=== PATIENT | female | born 1930 | race Caucasian/White ===

== ENCOUNTER 2019-04-30 18:08 | Inpatient (IN) | payer OTHER ==
[2019-04-30] MEDS ORDERED: ASPIRIN COATED 81 MG TABLET.EC ONE (18:31)
[2019-04-30 18:36] VITALS: BMI 36.9
--- NOTE | 2019-04-30 19:13 | PDOC ---
History of Present Illness - General Chief Complaint: Chest Pain Stated Complaint: CHEST PAIN Time Seen by Provider: 04/30/19 19:13 Past History - Past Medical History Allergies/Adverse Reactions: Allergies Allergy/AdvReac Type Severity Reaction Status Date / Time No Known Drug Allergies Allergy Verified 04/30/19 18:36 Home Medications: Ambulatory Orders Acetaminophen [Tylenol .Extra-Strength -] 500 mg PO DAILY 06/12/16 Ammonium Lactate Lotion [Lac-Hydrin 12] 1 applic TP ASDIR 06/12/16 Ascorbic Acid [Vitamin C] 500 mg PO DAILY 06/12/16 Calcium 250Mg/Vit-D 125 Units [Oscal 250 mg+D -] 1 combo PO BID 06/12/16 Clopidogrel Bisulfate [Plavix -] 75 mg PO DAILY 06/12/16 Cyanocobalamin [Vitamin B12 -] 1,000 mcg PO DAILY 06/12/16 Docusate Sodium [Colace -] 200 mg PO DAILY 06/12/16 Duloxetine HCl [Cymbalta] 30 mg PO DAILY 06/12/16 Ergocalciferol (Vitamin D2) [Drisdol] 50,000 units PO DAILY 06/12/16 Esomeprazole Magnesium [Nexium 24Hr] 20 mg PO DAILY 06/12/16 Febuxostat [Uloric -] 40 mg PO DAILY 06/12/16 Furosemide [Lasix -] 20 mg PO DAILY 06/12/16 Linaclotide [Linzess] 145 mcg PO DAILY 06/12/16 Lisinopril [Prinivil] 5 mg PO DAILY 06/12/16 Multivitamins [Multivit ([facility] Formulary)] 1 tab PO DAILY 06/12/16 Nebivolol [Bystolic -] 5 mg PO DAILY 06/12/16 Olopatadine HCl [Pazeo] 2.5 ml OP DAILY 06/12/16 [place]-3 Acid Ethyl Esters [Lovaza -] 2,000 mg PO BID 06/12/16 Ranolazine [Ranexa] 500 mg PO DAILY 06/12/16 Rosuvastatin Calcium [Crestor] 20 mg PO DAILY 06/12/16 traMADol HCL [Ultram -] 50 mg PO Q4H 06/12/16 Anemia: No Asthma: No Cancer: Yes (R BREAST S/P RADIATION) Cardiac Disorders: Yes (CABG) CVA: (TIA) COPD: Yes CHF: No Dementia: No Diabetes: Yes GI Disorders: No Disorders: No HTN: Yes Hypercholesterolemia: Yes Liver Disease: No Seizures: No Thyroid Disease: No - Surgical History Abdominal Surgery: No Appendectomy: No Cardiac Surgery: Yes (CABG) Cholecystectomy: Yes Lung Surgery: No Neurologic Surgery: No Orthopedic Surgery: No - Immunization History Immunization Up to Date: No - Suicide/Smoking/Psychosocial Hx Smoking Status: No Smoking History: Never smoked Have you smoked in the past 12 months: No Number of Cigarettes Smoked Daily: 0 Information on smoking cessation initiated: No Hx Alcohol Use: No Drug/Substance Use Hx: No Substance Use Type: None Hx Substance Use Treatment: No *Physical Exam - Vital Signs Last Vital Signs Temp Pulse Resp BP Pulse Ox 99 F 67 18 149/79 99 04/30/19 18:29 04/30/19 18:29 04/30/19 18:29 04/30/19 18:29 04/30/19 18:29
--- NOTE | 2019-04-30 19:34 | PDOC ---
History of Present Illness - General Chief Complaint: Chest Pain Stated Complaint: CHEST PAIN Time Seen by Provider: 04/30/19 19:13 - History of Present Illness Initial Comments: Darion Nicholas is an 88yo with a PMH of CAD, CABG, HTN, hyperlipidemia, type 2 DM, breast cancer, CVA, OA, melanoma who presents to the ED with acute onset of right-sided chest pain this evening. Her daughter is at bedside to translate. Ms Nicholas reports that she had the chest pain staring about an hour ago. It was intense, sharp, and radiated from the anterior right chest to right scapula. The pain did not feel like her previous chest pain. She did take a SL nitro with improvement in the pain temporarily, but when it did not resolve her daughter called an ambulance. She was given 2 additional SL nitro by EMS. The pt denies any difficulty breathing, nausea/vomiting, sweating, lightheadedness or other symptoms along with the pain. She states that it did worsen with movement, but she is unable to distinguish her chronic shoulder pain (from OA) from the current pain. Her daughter reports that she has not had any cough, congestion, fever/chills, recent travel, sick contacts, change in medications or other recent symptoms. Past History - Past Medical History Allergies/Adverse Reactions: Allergies Allergy/AdvReac Type Severity Reaction Status Date / Time No Known Drug Allergies Allergy Verified 04/30/19 18:36 Home Medications: Ambulatory Orders Acetaminophen [Tylenol .Extra-Strength -] 500 mg PO DAILY 06/12/16 Ammonium Lactate Lotion [Lac-Hydrin 12] 1 applic TP ASDIR 06/12/16 Ascorbic Acid [Vitamin C] 500 mg PO DAILY 06/12/16 Calcium 250Mg/Vit-D 125 Units [Oscal 250 mg+D -] 1 combo PO BID 06/12/16 Clopidogrel Bisulfate [Plavix -] 75 mg PO DAILY 06/12/16 Cyanocobalamin [Vitamin B12 -] 1,000 mcg PO DAILY 06/12/16 Docusate Sodium [Colace -] 200 mg PO DAILY 06/12/16 Duloxetine HCl [Cymbalta] 30 mg PO DAILY 06/12/16 Ergocalciferol (Vitamin D2) [Drisdol] 50,000 units PO DAILY 06/12/16 Esomeprazole Magnesium [Nexium 24Hr] 20 mg PO DAILY 06/12/16 Febuxostat [Uloric -] 40 mg PO DAILY 06/12/16 Furosemide [Lasix -] 20 mg PO DAILY 06/12/16 Linaclotide [Linzess] 145 mcg PO DAILY 06/12/16 Lisinopril [Prinivil] 5 mg PO DAILY 06/12/16 Multivitamins [Multivit ([facility] Formulary)] 1 tab PO DAILY 06/12/16 Nebivolol [Bystolic -] 5 mg PO DAILY 06/12/16 Olopatadine HCl [Pazeo] 2.5 ml OP DAILY 06/12/16 [place]-3 Acid Ethyl Esters [Lovaza -] 2,000 mg PO BID 06/12/16 Ranolazine [Ranexa] 500 mg PO DAILY 06/12/16 Rosuvastatin Calcium [Crestor] 20 mg PO DAILY 06/12/16 traMADol HCL [Ultram -] 50 mg PO Q4H 06/12/16 Anemia: No Asthma: No Cancer: Yes (R BREAST S/P RADIATION) Cardiac Disorders: Yes (CABG) CVA: (TIA) COPD: Yes CHF: No Dementia: No Diabetes: Yes GI Disorders: No Disorders: No HTN: Yes Hypercholesterolemia: Yes Liver Disease: No Seizures: No Thyroid Disease: No - Surgical History Abdominal Surgery: No Appendectomy: No Cardiac Surgery: Yes (CABG) Cholecystectomy: Yes Lung Surgery: No Neurologic Surgery: No Orthopedic Surgery: No - Immunization History Immunization Up to Date: No - Suicide/Smoking/Psychosocial Hx Smoking Status: No Smoking History: Never smoked Have you smoked in the past 12 months: No Number of Cigarettes Smoked Daily: 0 Information on smoking cessation initiated: No Hx Alcohol Use: No Drug/Substance Use Hx: No Substance Use Type: None Hx Substance Use Treatment: No Review of Systems - Review of Systems Comments:: General: No fevers, no chills, no weight or appetite change, no malaise HEENT: No changes in vision, no changes in hearing, no congestion, no sore throat CV: +Chest pain, no palpitations, no LE edema Pulm: No SOB, no cough, no wheezing GI: No nausea or vomiting, no change in bowel habits, no melena : No frequency, no urgency, no dysuria Musc: No back pain, no joint swelling, no recent injury. +OA Skin: No rash, no lesions, no erythema Endo: No excessive thirst, no heat/cold intolerance Heme: No unusual bruising or bleeding, no swollen glands Neuro: No syncope, no numbness/tingling, no focal weakness Vasc: No claudication Psych: No recent change in mood, no SI or HI *Physical Exam - Vital Signs Last Vital Signs Temp Pulse Resp BP Pulse Ox 99 F 67 18 149/79 99 04/30/19 18:29 04/30/19 18:29 04/30/19 18:29 04/30/19 18:29 04/30/19 18:29 - Physical Exam Comments: General: Comfortable, no acute distress HEENT: PERRL, EOMI, MMM, voice normal, normal neck ROM Cards: RRR, no murmur appreciated. TTP over right anterior chest Pulm: Comfortable on room air, clear to auscultation bilaterally Abd: Soft, nontender, nondistended Ext: Atraumatic. No LE edema. ROM intact but pain elicited w/ arm movements. TTP over b/l shoulders and scapula Vasc: Extremities WWP. Skin: Normal color, no rashes or lesions Neuro: A&Ox3, CN grossly intact, normal speech, motor/sensory grossly intact and symmetric Psych: Mood appropriate to situation ED Treatment Course - LABORATORY CBC & Chemistry Diagram: 04/30/19 19:38 04/30/19 22:00 Medical Decision Making - Medical Decision Making 04/30/19 19:34 Darion Nicholas is an 88yo with a PMH of CAD, CABG, HTN, hyperlipidemia, type 2 DM, breast cancer, CVA, OA, melanoma who presents to the ED with acute onset of right-sided chest pain this evening. She denies associated SOB, recent cough , nausea/vomiting or lightheadedness but reports worsening of pain w/ movement. Her daughter is at bedside to translate. - EKG completed in triage. Sinus rhythm, 1st degree block (TX 212), LBBB, t- wave inversions in I, II, aVL. Unchanged from 2016. - Pain sounds more musculoskeletal than cardiac, possible due to severe arthritis pain in left shoulder, but pt has significant cardiac comorbidities - No cough, fever, congestion suggesting pneumonia, but CXR to r/o - CBC, CMP, trop, mag, BNP - Acetaminophen for pain 04/30/19 20:40 - Difficulty placing IV. US guided line to be attempted by Dr Dowling 04/30/19 23:07 - Labs reviewed, no concerning abnormalities - Given comborbidities, pt is high risk for cardiac cause of pain. Microblog sent for admission 04/30/19 23:39 - Sign out given to V BELT CURER Jasmyn Weber. Will be admitted to telemetry on Dr Iglesias's service. Discussed with Dr Sheehan. Keyla James PGY2 *DC/Admit/Observation/Transfer Diagnosis at time of Disposition: Chest pain Qualifiers: Chest pain type: unspecified Qualified Code(s): R07.9 - Chest pain, unspecified - Discharge Dispostion Decision to Admit order: Yes - Referrals - Patient Instructions - Post Discharge Activity
[2019-04-30] MEDS ORDERED: ACETAMINOPHEN 1000 MG/100 ML VIAL (NON FORMULARY) IVPB ONE (19:35)
--- NOTE | 2019-04-30 19:56 | PDOC ---
Attending Attestation - Resident Resident Name: AnthonybrianKeyla - ED Attending Attestation I have performed the following: I have examined & evaluated the patient, The case was reviewed & discussed with the resident, I agree w/resident's findings & plan, Exceptions are as noted - HPI HPI: 04/30/19 23:04 88 yo F h/o CAD CABG htn here with chest pain. radiates across chest to back and right arm. has had similar in the past. also h/o arthritis. no leg swelling. no sob. no n/v no other complaints. started today. pcp dr mayuri hand - Physicial Exam PE: 04/30/19 23:07 awake alert lungs clear bilt heart rrr no mrg abd soft nt ext wwp no edema. no calf tenderness. pulses symmetric. - Medical Decision Making 04/30/19 23:08 88 yo F with h/o prior mastectomy dm cad cabg, here with c/o sob chest pain . plan r/o acs lab ekg took asa by EMS and nitro. cxr. labs unremarkable. ekg no acute changes. Heart Score/ECG Review #1 General ECG Interpretation: Sinus Rhythm, Normal Rate (67), Normal Intervals, No acute ischemic changes Compared to previous ECG there are: No significant change (TWi I, AVL, V4 - V6, left axis, LBBB no change from. 06/12/16)
[2019-04-30] MEDS ORDERED: ACETAMINOPHEN INJECTION 100 ML IVPB ONE (21:37)
[2019-04-30 22:13] LABS: EOS % 1.2 % (0-4.5); HEMOGLOBIN 13.7 GM/dL (10.7-15.3); LYMPH % 41.7 % (8-40); MCH 27.9 pg (25.7-33.7); MEAN CELL VOLUME 87.2 fl (80-96); MEAN PLT VOLUME 9.4 fl (7.5-11.1); MONO % 5.2 % (3.8-10.2); NEUT % 50.9 % (42.8-82.8); PLATELET COUNT 230 K/MM3 (134-434); RBC 4.93 M/mm3 (3.60-5.2); RDW 14.5 % (11.6-15.6); WHITE BLOOD COUNT 10.4 K/mm3 (4.0-10.0)
[2019-04-30 22:56] LABS: ALBUMIN 3.4 g/dl (3.4-5.0); BILIRUBIN,TOTAL 0.2 mg/dL (0.2-1); BLOOD UREA NITROGEN 38.5 mg/dL (7-18); CALCIUM 9.1 mg/dL (8.5-10.1); CREATININE 1.4 mg/dL (0.55-1.3); MAGNESIUM 2.4 mg/dL (1.8-2.4); N-TERMINAL BNP 581.4 pg/ml (5-450); POTASSIUM 4.5 mmol/L (3.5-5.1); TOT PROT 6.6 g/dl (6.4-8.2)
--- NOTE | 2019-04-30 23:49 | HP ---
Admitting History and Physical - Primary Care Physician PCP: Shayy Iglesias I - Admission Chief Complaint: Chest Pain History of Present Illness: This is a 88 y/o woman with a PMHx of CAD s/p CABG, HTN, HLD, DM, CVA, OA, Breast Ca, Melanoma. Who presents to the ED for right sided chest pain with radiation to L- shoulder. The daughter translated at bedside. 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: CVA Cardiovascular: Yes: CAD, HTN, Hyperlipdemia Heme/Onc: Yes: Cancer (Breast) Endocrine: Yes: Diabetes Mellitus - Past Surgical History Past Surgical History: Yes: CABG, Cholecystectomy, Mastectomy (Right) - Smoking History Smoking history: Never smoked Have you smoked in the past 12 months: No Aproximately how many cigarettes per day: 0 - Alcohol/Substance Use Hx Alcohol Use: No History of Substance Use: reports: None - Social History Usual Living Arrangement: Yes: With Child ADL: Family Assistance History of Recent Travel: No Home Medications - Allergies Allergies/Adverse Reactions: Allergies Allergy/AdvReac Type Severity Reaction Status Date / Time No Known Drug Allergies Allergy Verified 04/30/19 18:36 - Home Medications Home Medications: Ambulatory Orders Acetaminophen [Tylenol .Extra-Strength -] 500 mg PO DAILY 06/12/16 Ammonium Lactate Lotion [Lac-Hydrin 12] 1 applic TP ASDIR 06/12/16 Ascorbic Acid [Vitamin C] 500 mg PO DAILY 06/12/16 Calcium 250Mg/Vit-D 125 Units [Oscal 250 mg+D -] 1 combo PO BID 06/12/16 Clopidogrel Bisulfate [Plavix -] 75 mg PO DAILY 06/12/16 Cyanocobalamin [Vitamin B12 -] 1,000 mcg PO DAILY 06/12/16 Docusate Sodium [Colace -] 200 mg PO DAILY 06/12/16 Duloxetine HCl [Cymbalta] 30 mg PO DAILY 06/12/16 Ergocalciferol (Vitamin D2) [Drisdol] 50,000 units PO DAILY 06/12/16 Esomeprazole Magnesium [Nexium 24Hr] 20 mg PO DAILY 06/12/16 Febuxostat [Uloric -] 40 mg PO DAILY 06/12/16 Furosemide [Lasix -] 20 mg PO DAILY 06/12/16 Linaclotide [Linzess] 145 mcg PO DAILY 06/12/16 Lisinopril [Prinivil] 5 mg PO DAILY 06/12/16 Multivitamins [Multivit ([facility] Formulary)] 1 tab PO DAILY 06/12/16 Nebivolol [Bystolic -] 5 mg PO DAILY 06/12/16 Olopatadine HCl [Pazeo] 2.5 ml OP DAILY 06/12/16 [place]-3 Acid Ethyl Esters [Lovaza -] 2,000 mg PO BID 06/12/16 Ranolazine [Ranexa] 500 mg PO DAILY 06/12/16 Rosuvastatin Calcium [Crestor] 20 mg PO DAILY 06/12/16 traMADol HCL [Ultram -] 50 mg PO Q4H 06/12/16 Family Disease History - Family Disease History Family History: Unable to Obtain Family Medical History Family History: Unable to Obtain Review of Systems - Review of Systems Constitutional: reports: No Symptoms Eyes: reports: No Symptoms HENT: reports: No Symptoms Neck: reports: No Symptoms Cardiovascular: reports: Chest Pain Respiratory: reports: No Symptoms Gastrointestinal: reports: No Symptoms Genitourinary: reports: No Symptoms Breasts: reports: No Symptoms Reported Musculoskeletal: reports: Joint Pain Integumentary: reports: No Symptoms Neurological: reports: No Symptoms Endocrine: reports: No Symptoms Hematology/Lymphatic: reports: No Symptoms Psychiatric: reports: No Symptoms Pain Intensity: 4 Physical Examination Vital Signs: Vital Signs Temperature 99 F 04/30/19 18:29 Pulse Rate 67 04/30/19 18:29 Respiratory Rate 18 04/30/19 18:29 Blood Pressure 149/79 04/30/19 18:29 O2 Sat by Pulse Oximetry (%) 99 04/30/19 18:29 Constitutional: Yes: Well Nourished, No Distress, Calm Eyes: Yes: WNL, Conjunctiva Clear, EOM Intact, PERRL HENT: Yes: WNL, Atraumatic, Normocephalic Neck: Yes: WNL, Supple, Trachea Midline Cardiovascular: Yes: WNL, Regular Rate and Rhythm, S1, S2, Other (CP - reproducible on palpation) Respiratory: Yes: WNL, Regular, CTA Bilaterally Gastrointestinal: Yes: WNL, Normal Bowel Sounds, Soft, Abdomen, Obese ...Rectal Exam: Yes: Deferred Renal/: Yes: WNL Breast(s): Yes: WNL Musculoskeletal: Yes: Other (L- shoulder pain- TTP) Extremities: Yes: WNL Edema: No Peripheral Pulses WNL: Yes Neurological: Yes: WNL, Alert, Oriented, Cran Nerves II-XII Intact ...Motor Strength: WNL Psychiatric: Yes: WNL, Alert, Oriented Labs: CBC, BMP 04/30/19 19:38 04/30/19 22:00 Laboratory Results - last 24 hr 04/30/19 04/30/19 04/30/19 19:38 22:00 22:00 WBC 10.4 H RBC 4.93 Hgb 13.7 Hct 43.0 MCV 87.2 MCH 27.9 MCHC 32.0 RDW 14.5 Plt Count 230 MPV 9.4 Absolute Neuts (auto) 5.3 Neutrophils % 50.9 Lymphocytes % 41.7 H Monocytes % 5.2 Eosinophils % 1.2 Basophils % 1.0 Nucleated RBC % 0 Sodium 142 Potassium 4.5 Chloride 111 H Carbon Dioxide 24 Anion Gap 7 L BUN 38.5 H Creatinine 1.4 H Est GFR (CKD-EPI)AfAm 38.78 Est GFR (CKD-EPI)NonAf 33.46 Random Glucose 243 H Calcium 9.1 Magnesium 2.4 Total Bilirubin 0.2 AST 8 L ALT 15 Alkaline Phosphatase 85 Creatine Kinase 45 Troponin I 0.03 B-Natriuretic Peptide 581.4 H Total Protein 6.6 Albumin 3.4 Intake & Output 04/27/19 04/28/19 04/29/19 04/30/19 23:59 23:59 23:59 23:59 Weight 100.698 kg Imaging - Results Chest X-ray: Image Reviewed EKG: Image Reviewed Problem List - Problems (1) Chest pain Assessment/Plan: r/o ACS HEART Score 4 Serial Enzymes Cardiac Monitoring EKG reviewed RBBB no change compared to prior study Chest xray reviewed- negative acute process Appreciate Cardiology consult Echo in am Lipid panel Asa Continue home meds Code(s): R07.9 - CHEST PAIN, UNSPECIFIED Qualifiers: Chest pain type: unspecified Qualified Code(s): R07.9 - Chest pain, unspecified (2) Hyperlipidemia Assessment/Plan: stable continue home med monitor LFTs Code(s): E78.5 - HYPERLIPIDEMIA, UNSPECIFIED Qualifiers: Hyperlipidemia type: pure hypercholesterolemia (3) CAD (coronary artery disease) Assessment/Plan: see above Continue home meds Code(s): I25.10 - ATHSCL HEART DISEASE OF [place] CORONARY ARTERY W/O ANG PCTRS (4) Hypertension Assessment/Plan: sub optimal Continue home med Monitor renal function Code(s): I10 - ESSENTIAL (PRIMARY) HYPERTENSION Qualifiers: Hypertension type: essential hypertension Qualified Code(s): I10 - Essential (primary) hypertension (5) Type 2 diabetes mellitus Assessment/Plan: stable BGMs ISS Code(s): E11.9 - TYPE 2 DIABETES MELLITUS WITHOUT COMPLICATIONS (6) CKD (chronic kidney disease) stage 3, GFR 30-59 ml/min Assessment/Plan: Cr 1.4 at baseline Monitor BMP Avoid nephrotoxic drugs Code(s): N18.3 - CHRONIC KIDNEY DISEASE, STAGE 3 (MODERATE) (7) Hx of CABG Assessment/Plan: Continue home meds Code(s): Z95.1 - PRESENCE OF AORTOCORONARY BYPASS GRAFT (8) History of CVA (cerebrovascular accident) Assessment/Plan: continue home meds Fall precautions Code(s): Z86.73 - PRSNL HX OF TIA (TIA), AND CEREB INFRC W/O RESID DEFICITS (9) History of breast cancer Code(s): Z85.3 - PERSONAL HISTORY OF MALIGNANT NEOPLASM OF BREAST Assessment/Plan This is a 88 y/o woman with a PMHx of CAD s/p CABG, HTN, HLD, DM, CVA, Breast Ca , Melanoma, OA. Placed in Telemetry Observation for Chest Pain r/o ACS for further evaluation of their emergent condition. Plan: See Problem List FEN PO fluids as tolerated Replete lytes prn Low Na, Diabetic Diet DVT ppx OOB SCDs Heparin SQ Dispo: Observation Visit type - Emergency Visit Emergency Visit: Yes ED Registration Date: 04/30/19 Care time: The patient presented to the Emergency Department on the above date and was hospitalized for further evaluation of their emergent condition. - New Patient This patient is new to me today: Yes Date on this admission: 04/30/19 - Critical Care Critical Care patient: No
--- NOTE | 2019-05-01 09:27 | PN ---
Progress Note, Physician History of Present Illness: 88 y/o woman with a PMHx of CAD s/p CABG, HTN, HLD, DM, CVA, Breast Ca, Melanoma , OA. Placed in Telemetry Observation for Chest Pain r/o ACS for further evaluation of their emergent condition. Patient c/o right sided chest pain - Current Medication List Current Medications: Active Medications Allopurinol (Zyloprim -) 100 mg PO DAILY [facility] Ascorbic Acid (Vitamin C -) 500 mg PO DAILY [facility] Aspirin (Ecotrin -) 81 mg PO DAILY [facility] Clopidogrel Bisulfate (Plavix -) 75 mg PO DAILY [facility] Cyanocobalamin (Vitamin B12 -) 1,000 mcg PO DAILY [facility] Docusate Sodium (Colace -) 200 mg PO HS PRN PRN Reason: CONSTIPATION Duloxetine HCl (Cymbalta -) 30 mg PO DAILY [facility] Furosemide (Lasix -) 20 mg PO DAILY [facility] Heparin Sodium (Porcine) (Heparin -) 5,000 unit SQ BID [facility] Losartan Potassium (Cozaar -) 100 mg PO DAILY [facility] Multivitamins/Minerals/Vitamin C (Tab-A-Vit -) 1 tab PO DAILY [facility] Nebivolol (Bystolic -) 10 mg PO DAILY [facility] Non-Formulary Medication (Linaclotide [Linzess]) 145 mcg PO DAILY [facility] Non-Formulary Medication (Olopatadine Hcl [Pazeo]) 1 drop OU DAILY [facility] Ranolazine (Ranexa -) 500 mg PO BID [facility] Rosuvastatin Calcium (Crestor -) 20 mg PO HS [facility] - Objective Vital Signs: Vital Signs Temperature 99 F 04/30/19 18:29 Pulse Rate 57 L 05/01/19 02:36 Respiratory Rate 14 05/01/19 02:36 Blood Pressure 173/78 H 05/01/19 02:36 O2 Sat by Pulse Oximetry (%) 97 05/01/19 02:36 Cardiovascular: Yes: Regular Rate and Rhythm Respiratory: Yes: Regular, Hyperresonant Gastrointestinal: Yes: Normal Bowel Sounds, Soft. No: Tenderness Edema: No Labs: CBC, BMP 04/30/19 19:38 04/30/19 22:00 Problem List - Problems (1) Chest pain Assessment/Plan: maybe muscular CE negative cardio ct of chest tylenol Code(s): R07.9 - CHEST PAIN, UNSPECIFIED Qualifiers: Chest pain type: unspecified Qualified Code(s): R07.9 - Chest pain, unspecified (2) History of breast cancer Assessment/Plan: as above [facility] 2018 Code(s): Z85.3 - PERSONAL HISTORY OF MALIGNANT NEOPLASM OF BREAST (3) History of right mastectomy Code(s): Z90.11 - ACQUIRED ABSENCE OF RIGHT BREAST AND NIPPLE (4) Hx of CABG Assessment/Plan: Orders 05/01/19 10:00 Aspirin Coated [Ecotrin -] 81 mg PO DAILY Clopidogrel Bisulfate [Plavix -] 75 mg PO DAILY Nebivolol [Bystolic -] 10 mg PO DAILY Ranolazine [Ranexa -] 500 mg PO BID 05/01/19 22:00 Rosuvastatin [Crestor -] 20 mg PO HS Code(s): Z95.1 - PRESENCE OF AORTOCORONARY BYPASS GRAFT (5) Hypertension Assessment/Plan: pt wants to go home monitor bp at home on current meds Code(s): I10 - ESSENTIAL (PRIMARY) HYPERTENSION
[2019-05-01] MEDS ORDERED: ACETAMINOPHEN 500 MG TABLET (FP) PO ONE (09:29)
[2019-05-01] MEDS ORDERED: PATIENT'S OWN MEDICATION (NON-FORMULARY) (Linaclotide [Linzess] 145 MCG) PO SCH (10:00)
[2019-05-01] MEDS ORDERED: PATIENT'S OWN MEDICATION (NON-FORMULARY) (Olopatadine Hcl [Pazeo] 1 DROP) OU SCH (10:00)
[2019-05-01] MEDS ORDERED: ASPIRIN COATED 81 MG TABLET.EC PO SCH (10:00)
[2019-05-01] MEDS ORDERED: DULoxetine HCL 30 MG CAPSULE.DR PO SCH (10:00)
[2019-05-01] MEDS ORDERED: MULTIVITAMINS (DAILY MVI) TABLET (FP) PO SCH (10:00)
[2019-05-01] MEDS ORDERED: CLOPIDOGREL BISULFATE 75 MG TABLET (FP) PO SCH (10:00)
[2019-05-01] MEDS ORDERED: FUROSEMIDE 20 MG TABLET (FP) PO SCH (10:00)
[2019-05-01] MEDS ORDERED: CYANOCOBALAMIN 1,000 MCG TABLET (FP) PO SCH (10:00)
[2019-05-01] MEDS ORDERED: HEPARIN NA (PORCINE) 5,000 UNITS/ML 1ML VIAL SQ SCH (10:00)
[2019-05-01] MEDS ORDERED: NEBIVOLOL 10 MG TABLET (FP) PO SCH (10:00)
[2019-05-01] MEDS ORDERED: ALLOPURINOL 100 MG TABLET (FP) PO SCH (10:00)
[2019-05-01] MEDS ORDERED: ASPIRIN 81 MG CHEWABLE TABLETS PO SCH (10:00)
[2019-05-01] MEDS ORDERED: ASCORBIC ACID 500 MG TABLET (FP) PO SCH (10:00)
[2019-05-01] MEDS ORDERED: RANOLAZINE E.R. 500 MG TABLET (FP) PO SCH (10:00)
[2019-05-01] MEDS ORDERED: LOSARTAN POTASSIUM 50 MG TABLET (FP) PO SCH (10:00)
[2019-05-01 10:09] VITALS: TEMP 98.2
[2019-05-01 10:24] LABS: BASO % 0.8 % (0-2.0); EOS % 1.4 % (0-4.5); HEMOGLOBIN 13.7 GM/dL (10.7-15.3); LYMPH % 33.4 % (8-40); MCH 28.4 pg (25.7-33.7); MCHC 32.5 g/dl (32.0-36.0); MEAN CELL VOLUME 87.3 fl (80-96); MEAN PLT VOLUME 9.2 fl (7.5-11.1); MONO % 6.1 % (3.8-10.2); NEUT % 58.3 % (42.8-82.8); PLATELET COUNT 215 K/MM3 (134-434); RBC 4.81 M/mm3 (3.60-5.2); RDW 14.3 % (11.6-15.6); WHITE BLOOD COUNT 8.8 K/mm3 (4.0-10.0)
[2019-05-01] MEDS ORDERED: ALLOPURINOL 100 MG TABLET (FP) ONE (10:55)
[2019-05-01] MEDS ORDERED: HEPARIN NA (PORCINE) 5,000 UNITS/ML 1ML VIAL ONE (10:55)
[2019-05-01] MEDS ORDERED: ACETAMINOPHEN 325 MG TABLET (FP) ONE (10:55)
[2019-05-01 11:02] LABS: BLOOD UREA NITROGEN 35.4 mg/dL (7-18); CALCIUM 9.2 mg/dL (8.5-10.1); CREATININE 1.2 mg/dL (0.55-1.3); MAGNESIUM 2.4 mg/dL (1.8-2.4); PHOSPHOROUS 3.2 mg/dL (2.5-4.9); POTASSIUM 4.2 mmol/L (3.5-5.1)
--- NOTE | 2019-05-01 12:46 | ECHO ---
Version: 1 Name: FRANCO TRAMMELL Exam: Adult Echocardiogram Study Date: 05/01/2019, 9:16 AM Age: 88 Years MMode/2D Measurements & Calculations IVSd: 0.99 cm LVIDs: 3.4 cm LVIDd: 4.7 cm LVPWd: 1.03 cm LVOT diam: 1.95 cm Ao root diam: 2.5 cm LA dimension: 4.0 cm Doppler Measurements & Calculations MV E max сергей: 45.9 cm/sec Med E/e': 15.5 MV A max сергей: 104.1 cm/sec Med Peak E' Сергей: 3.0 cm/sec MV E/A: 0.44 Lat E/e': 13.3 Lat Peak E' Сергей: 3.4 cm/sec Ao max P.7 mmHg ABIODUN(I,D): 1.33 cm Ao mean P.4 mmHg LV V1 mean: 60.6 cm/sec Ao V2 max: 171.1 cm/sec LV V1 mean P.63 mmHg TR max сергей: 247.0 cm/sec TR max P.4 mmHg Left Ventricle The left ventricular size, thickness and function are normal. Ejection Fraction = 65. Right Ventricle The right ventricle is normal in size and function. Atria Normal left and right atrial size and function. Mitral Valve There is mild mitral annular calcification. There is trace mitral regurgitation. Tricuspid Valve The tricuspid valve is normal. There is trace tricuspid regurgitation. Aortic Valve There is mild aortic sclerosis.;. Mild aortic regurgitation. Pulmonic Valve The pulmonic valve is not well visualized. Great Vessels The aortic root is normal size. Normal aortic arch, descending and ascending aorta. Pericardium/Pleura There is no pericardial effusion. Summary Statements The left ventricular size, thickness and function are normal The right ventricle is normal in size and function. Normal left and right atrial size and function. There is mild mitral annular calcification. There is trace mitral regurgitation. The tricuspid valve is normal. There is trace tricuspid regurgitation. There is mild aortic sclerosis.; Mild aortic regurgitation. The pulmonic valve is not well visualized. The aortic root is normal size. Normal aortic arch, descending and ascending aorta There is no pericardial effusion. Jacky Niremberg 05/01/2019, 11:45 AM Ordering Physician: Jasmyn Weber Referring Physician: MALVIN MARIN Performed By: Aneta Diaz
--- NOTE | 2019-05-01 13:05 | EKG ---
Test Reason : Blood Pressure : / mmHG Vent. Rate : 067 BPM Atrial Rate : 067 BPM P-R Int : 212 ms QRS Dur : 138 ms QT Int : 464 ms P-R-T Axes : 052 029 182 degrees QTc Int : 490 ms POOR DATA QUALITY, INTERPRETATION MAY BE ADVERSELY AFFECTED SINUS RHYTHM WITH 1ST DEGREE A-V BLOCK LEFT BUNDLE BRANCH BLOCK ABNORMAL ECG WHEN COMPARED WITH ECG OF 12-JUN-2016 00:56, NO SIGNIFICANT CHANGE WAS FOUND Confirmed by MD Megan, Chad ([id number]) on 05/01/2019 1:04:54 PM Referred By: Confirmed By:Chad Guzman MD
--- NOTE | 2019-05-01 13:43 | DS ---
Physical Examination Vital Signs: Vital Signs Temperature 98.2 F 05/01/19 10:07 Pulse Rate 54 L 05/01/19 10:07 Respiratory Rate 14 05/01/19 02:36 Blood Pressure 187/59 H 05/01/19 10:07 O2 Sat by Pulse Oximetry (%) 97 05/01/19 10:07 Labs: CBC, BMP 05/01/19 10:03 05/01/19 10:03 Discharge Summary Reason For Visit: CHEST PAIN Current Active Problems Chest pain (Acute) Condition: Improved - Instructions Disposition: HOME - Home Medications Comprehensive Discharge Medication List: Ambulatory Orders Acetaminophen [Tylenol .Extra-Strength -] 500 mg PO DAILY 06/12/16 Ammonium Lactate Lotion [Lac-Hydrin 12] 1 applic TP ASDIR 06/12/16 Ascorbic Acid [Vitamin C] 500 mg PO DAILY 06/12/16 Calcium 250Mg/Vit-D 125 Units [Oscal 250 mg+D -] 1 combo PO BID 06/12/16 Clopidogrel Bisulfate [Plavix -] 75 mg PO DAILY 06/12/16 Cyanocobalamin [Vitamin B12 -] 1,000 mcg PO DAILY 06/12/16 Docusate Sodium [Colace -] 200 mg PO DAILY 06/12/16 Duloxetine HCl [Cymbalta] 30 mg PO DAILY 06/12/16 Ergocalciferol (Vitamin D2) [Drisdol] 50,000 units PO DAILY 06/12/16 Esomeprazole Magnesium [Nexium 24Hr] 20 mg PO DAILY 06/12/16 Febuxostat [Uloric -] 40 mg PO DAILY 06/12/16 Furosemide [Lasix -] 20 mg PO DAILY 06/12/16 Linaclotide [Linzess] 145 mcg PO DAILY 06/12/16 Lisinopril [Prinivil] 5 mg PO DAILY 06/12/16 Multivitamins [Multivit ([facility] Formulary)] 1 tab PO DAILY 06/12/16 Nebivolol [Bystolic -] 5 mg PO DAILY 06/12/16 Olopatadine HCl [Pazeo] 2.5 ml OP DAILY 06/12/16 [place]-3 Acid Ethyl Esters [Lovaza -] 2,000 mg PO BID 06/12/16 Ranolazine [Ranexa] 500 mg PO DAILY 06/12/16 Rosuvastatin Calcium [Crestor] 20 mg PO DAILY 06/12/16 traMADol HCL [Ultram -] 50 mg PO Q4H 06/12/16
--- NOTE | 2019-05-01 14:02 | CON.CARD ---
Consult Consult Specialty:: Cardiology Referred by:: Dr. Manriquez Reason for Consultation:: Cardiac evaluation - History of Present Illness History of Present Illness: Patient is an 88 year old female well known to our service (sees Dr. Pia Fall of [facility] in the office) with underlying history of CVA, CAD, s/p CABG, HTN, hypercholesterolemia, breast CA, DM and melanoma who presented with right sided chest pain described as sharp and radiating to right scapula. Currently, she appears asymptomatic. She does not appear to be having shortness of breath or palpitations. Denies fever or chills. Denies cough or expectorations. Denies any sick contacts and denies nausea, vomiting, diarrhea or abdominal pain. She denies headache or lightheadedness. She was given SL NTG by EMS. 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 Cardio/Vascular: Yes: CAD, HTN, Hyperlipdemia Endocrine: Yes: Diabetes Mellitus - Past Surgical History Past Surgical History: Yes: CABG, Cholecystectomy, Mastectomy (Right) - Alcohol/Substance Use Hx Alcohol Use: No History of Substance Use: reports: None - Smoking History Smoking history: Never smoked Have you smoked in the past 12 months: No Aproximately how many cigarettes per day: 0 - Social History ADL: Family Assistance History of Recent Travel: No Home Medications - Allergies Allergies/Adverse Reactions: Allergies Allergy/AdvReac Type Severity Reaction Status Date / Time No Known Drug Allergies Allergy Verified 04/30/19 18:36 - Home Medications Home Medications: Ambulatory Orders Acetaminophen [Tylenol .Extra-Strength -] 500 mg PO DAILY 06/12/16 Ammonium Lactate Lotion [Lac-Hydrin 12] 1 applic TP ASDIR 06/12/16 Ascorbic Acid [Vitamin C] 500 mg PO DAILY 06/12/16 Calcium 250Mg/Vit-D 125 Units [Oscal 250 mg+D -] 1 combo PO BID 06/12/16 Clopidogrel Bisulfate [Plavix -] 75 mg PO DAILY 06/12/16 Cyanocobalamin [Vitamin B12 -] 1,000 mcg PO DAILY 06/12/16 Docusate Sodium [Colace -] 200 mg PO DAILY 06/12/16 Duloxetine HCl [Cymbalta] 30 mg PO DAILY 06/12/16 Ergocalciferol (Vitamin D2) [Drisdol] 50,000 units PO DAILY 06/12/16 Esomeprazole Magnesium [Nexium 24Hr] 20 mg PO DAILY 06/12/16 Febuxostat [Uloric -] 40 mg PO DAILY 06/12/16 Furosemide [Lasix -] 20 mg PO DAILY 06/12/16 Linaclotide [Linzess] 145 mcg PO DAILY 06/12/16 Lisinopril [Prinivil] 5 mg PO DAILY 06/12/16 Multivitamins [Multivit ([facility] Formulary)] 1 tab PO DAILY 06/12/16 Nebivolol [Bystolic -] 5 mg PO DAILY 06/12/16 Olopatadine HCl [Pazeo] 2.5 ml OP DAILY 06/12/16 [place]-3 Acid Ethyl Esters [Lovaza -] 2,000 mg PO BID 06/12/16 Ranolazine [Ranexa] 500 mg PO DAILY 06/12/16 Rosuvastatin Calcium [Crestor] 20 mg PO DAILY 06/12/16 traMADol HCL [Ultram -] 50 mg PO Q4H 06/12/16 Review of Systems - Review of Systems Constitutional: denies: Chills, Fever Cardiovascular: reports: Chest Pain. denies: Palpitations, Shortness of Breath Respiratory: denies: Cough, Hemoptysis, Orthopnea, PND, SOB, SOB on Exertion, Wheezing Gastrointestinal: denies: Abdominal Pain, Constipation, Diarrhea, Melena, Nausea , Rectal Bleeding, Vomiting Neurological: denies: Dizziness, Headache, Seizure, Syncope Vital Signs: Vital Signs Temperature 98.2 F 05/01/19 10:07 Pulse Rate 54 L 05/01/19 10:07 Respiratory Rate 14 05/01/19 02:36 Blood Pressure 187/59 H 05/01/19 10:07 O2 Sat by Pulse Oximetry (%) 97 05/01/19 10:07 Eyes: Yes: PERRL HENT: Yes: Atraumatic Neck: Yes: Supple Respiratory: Yes: CTA Bilaterally Gastrointestinal: Yes: Normal Bowel Sounds, Soft. No: Tenderness Cardiovascular: Yes: Regular Rate and Rhythm JVD: No PMI: Non-Displaced Heart Sounds: Yes: S1, S2. No: Gallop Edema: No - Other Data Labs, Other Data: CBC, BMP 05/01/19 10:03 05/01/19 10:03 Troponin, BNP 04/30/19 04/30/19 05/01/19 22:00 22:00 02:45 Troponin I 0.03 0.03 B-Natriuretic Peptide 581.4 H 05/01/19 10:03 Troponin I 0.02 B-Natriuretic Peptide Sinus rhythm with LBBB Echo: Report Reviewed (Normal LV systolic function, trace MR and TR) Problem List - Problems (1) Diastolic dysfunction without heart failure Code(s): I51.9 - HEART DISEASE, UNSPECIFIED (2) Melanoma Code(s): C43.9 - MALIGNANT MELANOMA OF SKIN, UNSPECIFIED (3) CAD (coronary artery disease) Code(s): I25.10 - ATHSCL HEART DISEASE OF [place] CORONARY ARTERY W/O ANG PCTRS (4) CKD (chronic kidney disease) stage 3, GFR 30-59 ml/min Code(s): N18.3 - CHRONIC KIDNEY DISEASE, STAGE 3 (MODERATE) (5) History of CVA (cerebrovascular accident) Code(s): Z86.73 - PRSNL HX OF TIA (TIA), AND CEREB INFRC W/O RESID DEFICITS (6) History of breast cancer Code(s): Z85.3 - PERSONAL HISTORY OF MALIGNANT NEOPLASM OF BREAST (7) History of right mastectomy Code(s): Z90.11 - ACQUIRED ABSENCE OF RIGHT BREAST AND NIPPLE (8) Hx of CABG Code(s): Z95.1 - PRESENCE OF AORTOCORONARY BYPASS GRAFT (9) Hyperlipidemia Code(s): E78.5 - HYPERLIPIDEMIA, UNSPECIFIED Qualifiers: Hyperlipidemia type: pure hypercholesterolemia (10) Hypertension Code(s): I10 - ESSENTIAL (PRIMARY) HYPERTENSION Qualifiers: Hypertension type: essential hypertension Qualified Code(s): I10 - Essential (primary) hypertension (11) Type 2 diabetes mellitus Code(s): E11.9 - TYPE 2 DIABETES MELLITUS WITHOUT COMPLICATIONS Assessment/Plan 1. Chest pain syndrome, atypical with underlying CAD s/p CABG, angina pectoris 2. HTN 3. Type 2 DM 4. Hypercholesterolemia 5. Diastolic dysfunction currently euvolemic/compensated 6. CKD 7. History of breast CA s/p right mastectomy 8. History of CVA PLAN: 1. Troponin negative 2. Echocardiography report noted 3. Continue current medical therapy and continue conservative management 4. Follow up with Dr. Pia Fall ([facility]) as outpatient ) Hernán Christie MD
[2019-05-01 14:54] VITALS: BP 188/82; PULSE 65
[2019-05-01] MEDS ORDERED: DOCUSATE SODIUM 100 MG CAPSULE (FP) PO PRN (22:00)
[2019-05-01] MEDS ORDERED: ROSUVASTATIN CA 20 MG TABLET (FP) PO SCH (22:00)
== END 2019-05-01 14:53 | disposition home or self-care (01) | DRG 303 ==
LOC: JER 18:08 → JERBED 23:40 → OBSVTOIN 05-01 07:23
PROVIDERS: ADMIT Family Medicine; ATTEND Family Medicine
DX: I25.119 Atherosclerotic heart disease of native coronary artery with unspecified angina pectoris (principal); E78.5 Hyperlipidemia, unspecified; E11.9 Type 2 diabetes mellitus without complications; C43.9 Malignant melanoma of skin, unspecified; I51.9 Heart disease, unspecified; I13.10 Hypertensive heart and chronic kidney disease without heart failure, with stage 1 through stage 4 chronic kidney disease, or unspecified chronic kidney disease; N18.3 Chronic kidney disease, stage 3 (moderate); Z95.1 Presence of aortocoronary bypass graft; R07.89 Other chest pain
CPT/HCPCS: 36415; 71045-TC-FY; 80048; 80053; 82550; 83036; 83735; 83880; 84100; 84443; 84484; 85025; 93005; 93010; 93306-TC; 99285-25; G0378; J0131; J1644

== ENCOUNTER 2020-03-28 09:51 | Inpatient (IN) | payer OTHER ==
--- NOTE | 2020-03-28 10:00 | PDOC ---
History of Present Illness <Eleonora Jacobo - Last Filed: 03/28/20 11:28> - General History Source: Patient Exam Limitations: Language Barrier <Jimmy Henriquez - Last Filed: 03/28/20 12:37> - General Chief Complaint: Chest Pain Stated Complaint: CHEST PAIN Time Seen by Provider: 03/28/20 09:59 - History of Present Illness Initial Comments: 03/28/20 10:00 89 y/o F with Hx of HTN, HLD, CAD s/p CABG, morbid obesity, CHF, chronic c onstipation, rheumatoid arthritis, eczema, type 2 DM, COVID+ pneumonia (11/24-) presenting w sudden onset persistent mild midsternal chest heaviness, SOB, pale, clammy at rest after eating breakfast this morning. Not associated w exertion/position. Never felt like this before. Doesn't remember what meds she took this morning. Checked BG, not hypoglycemic. Denies fever, n/v, couch, ABD pain, changes in ABD/leg distension (Jimmy Henriquez) Past History <Eleonora Jacobo - Last Filed: 03/28/20 11:28> - Medical History Anemia: No Asthma: No Cancer: Yes (R BREAST S/P RADIATION, melanoma) Cardiac Disorders: Yes (CABG, CAD) CVA: (TIA) COPD: Yes CHF: Yes Dementia: No Diabetes: Yes GI Disorders: No Disorders: No HTN: Yes Hypercholesterolemia: Yes Liver Disease: No Seizures: No Thyroid Disease: No - Surgical History Abdominal Surgery: No Appendectomy: No Cardiac Surgery: Yes (CABG) Cholecystectomy: Yes Lung Surgery: No Neurologic Surgery: No Orthopedic Surgery: No - Reproductive History Is Patient Now?: No - Immunization History Immunization Up to Date: No - Psycho-Social/Smoking History Smoking Status: No Smoking History: Unknown if ever smoked Have you smoked in the past 12 months: No Number of Cigarettes Smoked Daily: 0 - Substance Abuse Hx (Audit-C & DAST Scrn) How often the patient has a drink containing alcohol: Never Score: In Men: 4 or > Positive; In Women: 3 or > Positive: 0 Screen Result (Pos requires Nsg. Audit-10AR): Negative <Jimmy Henriquez - Last Filed: 03/28/20 12:37> - Medical History Allergies/Adverse Reactions: Allergies Allergy/AdvReac Type Severity Reaction Status Date / Time No Known Drug Allergies Allergy Verified 03/28/20 09:57 Home Medications: Ambulatory Orders Ammonium Lactate Lotion [Lac-Hydrin 12] 1 applic TP ASDIR 06/12/16 Ascorbic Acid [Vitamin C] 500 mg PO DAILY 06/12/16 Calcium 250Mg/Vit-D 125 Units [Oscal 250 mg+D -] 1 combo PO BID 06/12/16 Clopidogrel Bisulfate [Plavix -] 75 mg PO DAILY 06/12/16 Cyanocobalamin [Vitamin B12 -] 1,000 mcg PO DAILY 06/12/16 Duloxetine HCl [Cymbalta] 30 mg PO DAILY 06/12/16 Ergocalciferol (Vitamin D2) [Drisdol] 50,000 units PO DAILY 06/12/16 Febuxostat [Uloric -] 40 mg PO DAILY 06/12/16 Linaclotide [Linzess] 145 mcg PO DAILY 06/12/16 Multivitamins [Multivit ([facility] Formulary)] 1 tab PO DAILY 06/12/16 Nebivolol [Bystolic -] 5 mg PO DAILY 06/12/16 [place]-3 Acid Ethyl Esters [Lovaza -] 2,000 mg PO BID 06/12/16 Ranolazine [Ranexa] 500 mg PO DAILY 06/12/16 Rosuvastatin Calcium [Crestor] 20 mg PO DAILY 06/12/16 Cefpodoxime Proxetil [Vantin -] 100 mg PO DAILY #3 tablet 12/05/19 Prednisone 5 mg PO DAILY #3 tablet 12/05/19 Cardiac Specific PMH - Complaint Specific PMHX Pacemaker: No <Jimmy Henriquez - Last Filed: 03/28/20 12:37> Review of Systems - Review of Systems Constitutional: No: Chills, Fever HEENTM: No: Eye Pain, Nose Congestion Respiratory: Yes: Shortness of Breath. No: Cough Cardiac (ROS): Yes: Chest Pain. No: Palpitations ABD/GI: No: Constipated, Diarrhea, Nausea, Vomiting : No: Burning, Dysuria Musculoskeletal: No: Back Pain, Joint Pain Integumentary: No: Bruising, Flushing Neurological: No: Headache, Seizure Psychiatric: No: Anxiety, Depression Endocrine: No: Intolerance to Cold, Intolerance to Heat Hematologic/Lymphatic: No: Anemia, Blood Clots <FlorenceJimmy - Last Filed: 03/28/20 12:37> *Physical Exam - Physical Exam General Appearance: Yes: Nourished, Appropriately Dressed, Mild Distress, Obese HEENT: positive: EOMI, ELISABETH, Normal Voice, Hearing Grossly Normal. negative: Scleral Icterus (R), Scleral Icterus (L) Respiratory/Chest: positive: Chest Tender (midsternal), Lungs Clear, Normal Breath Sounds. negative: Respiratory Distress, Crackles, Rales, Rhonchi, Stridor, Wheezing Cardiovascular: positive: Regular Rhythm, Regular Rate, S1, S2. negative: Murmur Gastrointestinal/Abdominal: positive: Normal Bowel Sounds, Soft, Distended. negative: Tender Extremity: positive: Pedal Edema (1+ pitting to knees beatriz) Integumentary: positive: Normal Color, Warm. negative: Dry Neurologic: positive: Fully Oriented, Alert, Normal Mood/Affect, Normal Response, Responsive. negative: Confused, Disoriented <FlorenceJimmy - Last Filed: 03/28/20 12:37> - Vital Signs Last Vital Signs Temp Pulse Resp BP Pulse Ox 98.4 F 79 24 H 170/71 99 03/28/20 09:58 03/28/20 09:58 03/28/20 09:58 03/28/20 11:28 03/28/20 09:58 Heart Score/ECG Review - History History: Moderately suspicious - Electrocardiogram EKG: Normal - Age Age: >/= 65 - Risk Factors Risk Factors Heart Score: Yes Hx Hypercholesterolemia, Yes Hx Hypertension, Yes Hx Diabetes, Yes Hx Obesity Based on the list above the patient has:: >/=3 risk factors or Hx atherosclerotic disease - Troponin Troponin: </= normal limit - Score Heart Score - Total: 5 <FlorenceJimmy - Last Filed: 03/28/20 12:37> ED Treatment Course - LABORATORY CBC & Chemistry Diagram: 03/28/20 10:35 03/28/20 10:16 <Eleonora Jacobo - Last Filed: 03/28/20 11:28> - LABORATORY CBC & Chemistry Diagram: 03/28/20 10:35 03/28/20 10:16 <Jimmy Henriquez - Last Filed: 03/28/20 12:37> - ADDITIONAL ORDERS Additional order review: Laboratory Results 03/28/20 03/28/20 03/28/20 10:35 10:35 10:16 PT with INR 11.20 INR 0.95 Sodium 142 Potassium 5.1 Chloride 113 H Carbon Dioxide 16 L Anion Gap 13 BUN 49.1 H Creatinine 1.5 H Est GFR (CKD-EPI)AfAm 35.43 Est GFR (CKD-EPI)NonAf 30.57 Random Glucose 159 H Calcium 8.5 Total Bilirubin 0.4 AST 29 ALT 16 Alkaline Phosphatase 73 Creatine Kinase 81 Troponin I < 0.02 B-Natriuretic Peptide 341.8 Total Protein 6.9 Albumin 3.5 03/28/20 10:35 RBC 4.52 MCV 90.5 MCHC 32.8 RDW 13.9 D MPV 10.0 Neutrophils % 59.0 D Lymphocytes % 33.8 Monocytes % 5.4 Eosinophils % 1.1 Basophils % 0.7 - RADIOLOGY Radiology Studies Ordered: Category Date Time Status CXRPORT [CHEST X-RAY PORTABLE*] [RAD] Stat Radiology 03/28/20 10:18 Completed DUPLEX VASCUL US-2LEGS [US] Stat Ultrasound 03/28/20 10:16 Completed - Medications Given in the ED: ED Medications Discontinued Medications Generic Name Dose Route Start Last Admin Trade Name Freq PRN Reason Stop Dose Admin Aspirin 324 mg 03/28/20 10:16 03/28/20 10:59 Asa - PO 03/28/20 10:17 324 mg ONCE ONE Administration Medical Decision Making <Jimmy Henriquez - Last Filed: 03/28/20 12:37> - Medical Decision Making 03/28/20 10:22 EKG - sinus rhythm w 1st block, LBBB, HR 73, QTc 475, unchanged CXR - cardiomegaly, no acute chest pathology duplex 2leg US - neg DVT --- 89 y/o F with Hx of HTN, HLD, CAD s/p CABG, morbid obesity, CHF, chronic cons tipation, rheumatoid arthritis, eczema, type 2 DM, COVID+ pneumonia (11/24-) presenting w sudden onset persistent mild midsternal chest heaviness, SOB after eating breakfast this morning. likely costochondritis (tender chest). Low concern for CHF (unchanged swelling, no lung infiltrates) vs PNA (no consolidation) vs ACS (neg trop) vs PE (neg duplex, unchanged swelling) Given 324 aspirin Admit tele/obvs for chest pain, ACS r/o, HEART 5 PCP Harris Manriquez (Jimmy Henriquez) Discharge <Eleonora Jacobo - Last Filed: 03/28/20 11:28> - Discharge Information Problems reviewed: Yes <Jimmy Henriquez - Last Filed: 03/28/20 12:37> - Discharge Information Clinical Impression/Diagnosis: Costochondritis Condition: Improved - Follow up/Referral Referrals: Shayy Iglesias MD [Primary Care Provider] - Vital Signs - Vital Signs Vital signs refused: Yes Blood Pressure: 170/71 BP Location: Left Arm <Eleonora Jacobo - Last Filed: 03/28/20 11:28>
[2020-03-28] MEDS ORDERED: ASPIRIN 81 MG CHEWABLE TABLETS PO ONE (10:16)
[2020-03-28] MEDS ORDERED: ASPIRIN 81 MG CHEWABLE TABLETS ONE (10:55)
[2020-03-28 11:00] LABS: BASO % 0.7 % (0-2.0); EOS % 1.1 % (0-4.5); HEMATOCRIT 40.9 % (32.4-45.2); HEMOGLOBIN 13.4 GM/dL (10.7-15.3); LYMPH % 33.8 % (8-40); MCH 29.7 pg (25.7-33.7); MCHC 32.8 g/dl (32.0-36.0); MEAN CELL VOLUME 90.5 fl (80-96); MONO % 5.4 % (3.8-10.2); PLATELET COUNT 195 K/MM3 (134-434); RBC 4.52 M/mm3 (3.60-5.2); RDW 13.9 % (11.6-15.6); WHITE BLOOD COUNT 8.7 K/mm3 (4.0-10.0)
[2020-03-28 11:13] LABS: INR 0.95 (0.83-1.09); PROTHROMBIN TIME (PATIENT) 11.2 SEC (9.7-13.0)
--- NOTE | 2020-03-28 11:51 | PDOC ---
Documentation entered by Coral Barros SCRIBE, acting as scribe for Connie Sheehan MD. Connie Sheehan MD: This documentation has been prepared by the naveenibePapo Ana, SCRIBE, under my direction and personally reviewed by me in its entirety. I confirm that the documentation accurately reflects all work, treatment, procedures, and medical decision making performed by me. Attending Attestation - Resident Resident Name: Jimmy Henriquez - ED Attending Attestation I have performed the following: I have examined & evaluated the patient, The case was reviewed & discussed with the resident, I agree w/resident's findings & plan, Exceptions are as noted - HPI HPI: 03/28/20 10:12 89 yo F h/o and CAD s/p CABG congestive heart failure, diabetes, hypertension, RA HLD, COVID+ pneumonia (11/24-), who presents to the ED with chest heaviness and SOB since earlier this morning. Patient stated her symptoms began shortly after she had breakfast around 9 am . and described her chest heaviness as mild, constant, and that it is located in the center of chest with no association to movement or position. radiating to he arms. did get pale at the time per her daughter and had associated sob. no h/o stents post her cabg. Patient denies: fever, chills, nausea, vomiting, cough, abdominal pain, or any other related symptoms. Allergies: NKDA 03/28/20 13:39 - Physicial Exam PE: 03/28/20 13:46 Awake alert no acute distress lungs are clear bilaterally heart is regular 30 murmurs rubs or gallops abdomen is soft and nontender skin is warm and dry extremities are well perfused there is no appreciated edema or calf tenderness pulses are symmetric patient is in A&O x3 - Medical Decision Making 03/29/20 17:09 89 yo F h/o cabg htn hld recent covid RA here with chest pressure. lasted 25 min. now resolved. did take his asa and plavix today. differential angina, chf pneumonia. due to recent covid, concerns for chf , worsening cardiac function. plan labs ekg, doppler lower extremities r/o dvt. ( left leg mild more swllen than right) cxr. pt troponin negative. ekg unchanged, old LBBB. already took asa and plavix at home. cxr unchanged. dopplers negative. 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 will call to inform him pt is here. Discharge - Discharge Information Problems reviewed: Yes Clinical Impression/Diagnosis: Chest pain, Angina at rest Condition: Improved - Follow up/Referral - Patient Discharge Instructions - Post Discharge Activity
[2020-03-28 11:54] LABS: ALBUMIN 3.5 g/dl (3.4-5.0); ALK PHOS 73 U/L (45-117); ANION GAP 13 MMOL/L (8-16); BILIRUBIN,TOTAL 0.4 mg/dL (0.2-1); BLOOD UREA NITROGEN 49.1 mg/dL (7-18); CALCIUM 8.5 mg/dL (8.5-10.1); CHLORIDE 113 mmol/L (98-107); CO2 16 mmol/L (21-32); CREATININE 1.5 mg/dL (0.55-1.3); GLUCOSE,RANDOM 159 mg/dL (74-106); POTASSIUM 5.1 mmol/L (3.5-5.1); SGOT/AST 29 U/L (15-37); SGPT/ALT 16 U/L (13-61); SODIUM 142 mmol/L (136-145); TOT PROT 6.9 g/dl (6.4-8.2)
[2020-03-28] MEDS ORDERED: ACETAMINOPHEN 500 MG TABLET (FP) PO ONE (16:16)
--- NOTE | 2020-03-28 16:19 | HP ---
Admitting History and Physical - Admission History of Present Illness: chest pain and sob this am. 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 Cardiovascular: Yes: CAD, HTN, Hyperlipdemia ...: No Heme/Onc: Yes: Cancer (Breast) Endocrine: Yes: Diabetes Mellitus - Past Surgical History Past Surgical History: Yes: CABG, Cholecystectomy, Mastectomy (Right) - Smoking History Smoking history: Unknown if ever smoked Have you smoked in the past 12 months: No Aproximately how many cigarettes per day: 0 - Alcohol/Substance Use Hx Alcohol Use: No History of Substance Use: reports: None - Social History ADL: Family Assistance History of Recent Travel: No Home Medications - Allergies Allergies/Adverse Reactions: Allergies Allergy/AdvReac Type Severity Reaction Status Date / Time No Known Drug Allergies Allergy Verified 03/28/20 09:57 - Home Medications Home Medications: Ambulatory Orders Ammonium Lactate Lotion [Lac-Hydrin 12] 1 applic TP ASDIR 06/12/16 Ascorbic Acid [Vitamin C] 500 mg PO DAILY 06/12/16 Calcium 250Mg/Vit-D 125 Units [Oscal 250 mg+D -] 1 combo PO BID 06/12/16 Clopidogrel Bisulfate [Plavix -] 75 mg PO DAILY 06/12/16 Cyanocobalamin [Vitamin B12 -] 1,000 mcg PO DAILY 06/12/16 Duloxetine HCl [Cymbalta] 30 mg PO DAILY 06/12/16 Ergocalciferol (Vitamin D2) [Drisdol] 50,000 units PO DAILY 06/12/16 Febuxostat [Uloric -] 40 mg PO DAILY 06/12/16 Linaclotide [Linzess] 145 mcg PO DAILY 06/12/16 Multivitamins [Multivit ([facility] Formulary)] 1 tab PO DAILY 06/12/16 Nebivolol [Bystolic -] 5 mg PO DAILY 06/12/16 [place]-3 Acid Ethyl Esters [Lovaza -] 2,000 mg PO BID 06/12/16 Ranolazine [Ranexa] 500 mg PO DAILY 06/12/16 Rosuvastatin Calcium [Crestor] 20 mg PO DAILY 06/12/16 Cefpodoxime Proxetil [Vantin -] 100 mg PO DAILY #3 tablet 12/05/19 Prednisone 5 mg PO DAILY #3 tablet 12/05/19 Review of Systems - Review of Systems Cardiovascular: reports: Chest Pain Respiratory: reports: SOB Gastrointestinal: reports: Constipation. denies: Abdominal Pain Physical Examination Vital Signs: Vital Signs Temperature 98.4 F 03/28/20 09:58 Pulse Rate 70 03/28/20 15:57 Respiratory Rate 18 03/28/20 15:57 Blood Pressure 177/64 H 03/28/20 15:57 O2 Sat by Pulse Oximetry (%) 96 03/28/20 15:57 Cardiovascular: Yes: Regular Rate and Rhythm Respiratory: Yes: Regular, CTA Bilaterally Gastrointestinal: Yes: Normal Bowel Sounds, Soft. No: Tenderness Edema: No Neurological: Yes: Alert, Oriented Labs: CBC, BMP 03/28/20 10:35 03/28/20 10:16 Problem List - Problems (1) Chest pain Assessment/Plan: CE NEG X 2 CONTINUE WITH MEDS TELE CARDIO CONSULT Code(s): R07.9 - CHEST PAIN, UNSPECIFIED (2) CHF (congestive heart failure) Assessment/Plan: NO EVIDENCE OF FAILURE MONITOR Code(s): I50.9 - HEART FAILURE, UNSPECIFIED (3) CAD (coronary artery disease) Assessment/Plan: SAME MEDS Code(s): I25.10 - ATHSCL HEART DISEASE OF [place] CORONARY ARTERY W/O ANG PCTRS (4) Hx of CABG Code(s): Z95.1 - PRESENCE OF AORTOCORONARY BYPASS GRAFT (5) Type 2 diabetes mellitus Assessment/Plan: BGM Code(s): E11.9 - TYPE 2 DIABETES MELLITUS WITHOUT COMPLICATIONS
[2020-03-28] MEDS ORDERED: ACETAMINOPHEN 500 MG TABLET (FP) ONE (16:40)
[2020-03-28] MEDS: INSULIN (NOVOLOG) ASPART 100 UNITS/ML 10ML VIAL SQ SCH ×2 (16:56→22:53)
[2020-03-28] MEDS ORDERED: ACETAMINOPHEN 325 MG TABLET (FP) ONE (17:47)
[2020-03-28 20:01] VITALS: BMI 34.6
--- NOTE | 2020-03-28 22:14 | HOSP ---
Subjective - Review of Symptoms Events since last encounter: Hospitalist Encounter Notified by the primary RN, the patient reports having CP, was asked to assess. Arrived to bedside, patient is alert, awake and oriented, speaks [place], [employer] used #[id number]. Patient reports having left sided chest pressure with SOB. She reports having the pain for 24hrs, she reports it is less now. Patient examined at bedside- see EMR Plan: Stat EKG Cardiac Enzymes O2 Physical Examination Vital Signs: Vital Signs Temperature 98.4 F 03/28/20 09:58 Pulse Rate 70 03/28/20 15:57 Respiratory Rate 18 03/28/20 15:57 Blood Pressure 177/64 H 03/28/20 15:57 O2 Sat by Pulse Oximetry (%) 96 03/28/20 15:57 Constitutional: Yes: Well Nourished, No Distress, Calm, Obese Eyes: Yes: WNL, Conjunctiva Clear, EOM Intact, PERRL HENT: Yes: WNL, Atraumatic, Normocephalic Neck: Yes: WNL, Supple, Trachea Midline Cardiovascular: Yes: Regular Rate and Rhythm, S1, S2 Respiratory: Yes: WNL, Regular, CTA Bilaterally Gastrointestinal: Yes: Normal Bowel Sounds, Soft, Abdomen, Obese, Tenderness, Epigastrium ...Rectal Exam: Yes: Deferred Renal/: Yes: WNL Breast(s): Yes: Right (Mastectomy) Musculoskeletal: Yes: WNL Extremities: Yes: WNL Edema: No Peripheral Pulses WNL: Yes Neurological: Yes: Alert, Oriented, Cran Nerves II-XII Intact ...Motor Strength: WNL Psychiatric: Yes: WNL, Alert, Oriented Labs: CBC, BMP 03/28/20 10:35 03/28/20 10:16 Laboratory Results - last 24 hr 03/28/20 03/28/20 03/28/20 10:16 10:35 10:35 WBC 8.7 RBC 4.52 Hgb 13.4 Hct 40.9 MCV 90.5 MCH 29.7 MCHC 32.8 RDW 13.9 D Plt Count 195 D MPV 10.0 Absolute Neuts (auto) 5.1 Neutrophils % 59.0 D Lymphocytes % 33.8 Monocytes % 5.4 Eosinophils % 1.1 Basophils % 0.7 Nucleated RBC % 0 PT with INR 11.20 INR 0.95 Sodium 142 Potassium 5.1 Chloride 113 H Carbon Dioxide 16 L Anion Gap 13 BUN 49.1 H Creatinine 1.5 H Est GFR (CKD-EPI)AfAm 35.43 Est GFR (CKD-EPI)NonAf 30.57 POC Glucometer Random Glucose 159 H Calcium 8.5 Total Bilirubin 0.4 AST 29 ALT 16 Alkaline Phosphatase 73 Creatine Kinase 81 Troponin I < 0.02 B-Natriuretic Peptide Total Protein 6.9 Albumin 3.5 03/28/20 03/28/20 03/28/20 10:35 13:40 16:47 WBC RBC Hgb Hct MCV MCH MCHC RDW Plt Count MPV Absolute Neuts (auto) Neutrophils % Lymphocytes % Monocytes % Eosinophils % Basophils % Nucleated RBC % PT with INR INR Sodium Potassium Chloride Carbon Dioxide Anion Gap BUN Creatinine Est GFR (CKD-EPI)AfAm Est GFR (CKD-EPI)NonAf POC Glucometer 150 Random Glucose Calcium Total Bilirubin AST ALT Alkaline Phosphatase Creatine Kinase Troponin I < 0.02 B-Natriuretic Peptide 341.8 Total Protein Albumin Current Medications Generic Name Dose Route Start Last Admin Trade Name Freq PRN Reason Stop Dose Admin Acetaminophen 500 mg 03/28/20 16:16 Tylenol - PO Q6H PRN PAIN LEVEL 1 - 3 Clopidogrel Bisulfate 75 mg 03/29/20 10:00 Plavix - PO DAILY [facility] Duloxetine HCl 30 mg 03/29/20 10:00 Cymbalta - PO DAILY [facility] Febuxostat 40 mg 03/29/20 10:00 Uloric - PO DAILY [facility] Insulin Aspart 0 units 03/28/20 16:30 03/28/20 22:53 Novolog Vial SQ Not Given ACHS [facility] Protocol Nebivolol 5 mg 03/29/20 10:00 Bystolic - PO DAILY [facility] Non-Formulary Medication 145 mcg 03/29/20 10:00 Linaclotide [Linzess] PO DAILY [facility] Btist-1-Sfng Ethyl Esters 2 gm 03/28/20 22:00 03/28/20 22:42 Lovaza - PO 2 gm BID [facility] Administration Prednisone 5 mg 03/29/20 10:00 Deltasone - PO DAILY [facility] Ranolazine 500 mg 03/28/20 22:00 03/28/20 22:42 Ranexa - PO 500 mg BID [facility] Administration Rosuvastatin Calcium 20 mg 03/29/20 10:00 Crestor - PO DAILY [facility] Hospitalist Encounter Assessment: This is a 89 y/o female with significant past medical history of CAD, s/p CABG, HTN, HLD, DM, R- Breast Ca s/p Mastectomy. Admitted for Chest Pain r/o ACS Troponin x2 neg Outcome: EKG reviewed- prominent ST depressions in Lead II, III, aVF new compared to pr ior study CE pending Call placed to Dr Fall's service d/w RN Nitropaste 0.5" to LCW Cardiac Enzymes resulted- neg Per RN Dr Christie called back, placed orders Will continue to monitor overnight, PMD to resume care in AM Critical Care Total Critical Care Time (in minutes): 32 Critical Care Statement: The care of this patient involved high complexity decision making to prevent further life threatening deterioration of the patient's condition and/or to evaluate & treat vital organ system(s) failure or risk of failure.
[2020-03-28] MEDS ORDERED: NITROGLYCERIN 2% OINTMENT - 1GM PACKET TD ONE (22:23)
[2020-03-28] MEDS: OMEGA-3 ACID ETHYL ESTERS (FATTY-ACIDS) 1 GM CAPSULE (FP) PO SCH (22:42)
[2020-03-28] MEDS: RANOLAZINE E.R. 500 MG TABLET (FP) PO SCH (22:42)
[2020-03-28] MEDS ORDERED: hydrALAZINE HCL 25 MG TABLET (FP) PO ONE (23:30)
[2020-03-29] MEDS ORDERED: GABAPENTIN 300 MG CAPSULE PO ONE (02:29)
[2020-03-29] MEDS: INSULIN (NOVOLOG) ASPART 100 UNITS/ML 10ML VIAL SQ SCH ×4 (06:22→21:10)
--- NOTE | 2020-03-29 07:09 | PN ---
Progress Note, Physician Chief Complaint: Chest Pain History of Present Illness: NAD Had episode of chest pain overnight Seen by Cardiology serial EKG's no change Serial trops no change BP elevated No abnormality on Tele - Current Medication List Current Medications: Active Medications Acetaminophen (Tylenol -) 500 mg PO Q6H PRN PRN Reason: PAIN LEVEL 1 - 3 Clopidogrel Bisulfate (Plavix -) 75 mg PO DAILY [facility] Duloxetine HCl (Cymbalta -) 30 mg PO DAILY [facility] Febuxostat (Uloric -) 40 mg PO DAILY [facility] Insulin Aspart (Novolog Vial) 0 units SQ ACHS [facility]; Protocol Melatonin (Melatonin) 5 mg PO HS PRN PRN Reason: INSOMNIA Nebivolol (Bystolic -) 5 mg PO DAILY [facility] Non-Formulary Medication (Linaclotide [Linzess]) 145 mcg PO DAILY [facility] Irvuz-0-Upzj Ethyl Esters (Lovaza -) 2 gm PO BID [facility] Last Admin: 03/28/20 22:42 Dose: 2 gm Documented by: Prednisone (Deltasone -) 5 mg PO DAILY [facility] Ranolazine (Ranexa -) 500 mg PO BID [facility] Last Admin: 03/28/20 22:42 Dose: 500 mg Documented by: Rosuvastatin Calcium (Crestor -) 20 mg PO DAILY [facility] Sitagliptin Phosphate (Januvia -) 50 mg PO DAILY@0700 [facility] - Objective Vital Signs: Vital Signs Temperature 98.6 F 03/29/20 00:14 Pulse Rate 66 03/29/20 00:14 Respiratory Rate 20 03/29/20 00:14 Blood Pressure 158/75 03/29/20 00:14 O2 Sat by Pulse Oximetry (%) 100 03/29/20 00:14 Constitutional: Yes: Well Nourished, No Distress, Calm, Obese Cardiovascular: Yes: Regular Rate and Rhythm Respiratory: Yes: Regular, CTA Bilaterally Gastrointestinal: Yes: Normal Bowel Sounds, Soft, Abdomen, Obese Genitourinary: Yes: WNL Musculoskeletal: Yes: Muscle Weakness Extremities: Yes: WNL Edema: No Peripheral Pulses WNL: Yes Neurological: Yes: Alert, Oriented Psychiatric: Yes: Alert, Oriented Labs: CBC, BMP 03/28/20 10:35 03/28/20 10:16 INR, PTT INR 0.95 (0.83-1.09) 03/28/20 10:35 Problem List - Problems (1) CKD (chronic kidney disease) Assessment/Plan: -Cr at baseline -monitor trend Problems reviewed: Yes Code(s): N18.9 - CHRONIC KIDNEY DISEASE, UNSPECIFIED (2) Chest pain Assessment/Plan: -Tele monitor -Cardiology consult -EKG no changes -Serial Trops negative -Last Echo 05/03- Normal LVEF at 65%, mild tricuspid, mitral and aortic regurg, mild mitral annular calcification, mild aortic sclerosis. -Repeat echo upon Cardiology discretion Problems reviewed: Yes Code(s): R07.9 - CHEST PAIN, UNSPECIFIED (3) CAD (coronary artery disease) Assessment/Plan: -Continue Statin -Continue Plavix -Continue Bystolic Problems reviewed: Yes Code(s): I25.10 - ATHSCL HEART DISEASE OF [place] CORONARY ARTERY W/O ANG PCTRS (4) Hyperlipidemia Problems reviewed: Yes Code(s): E78.5 - HYPERLIPIDEMIA, UNSPECIFIED Qualifiers: Hyperlipidemia type: pure hypercholesterolemia Qualified Code(s): E78.00 - Pure hypercholesterolemia, unspecified; E78.0 - Pure hypercholesterolemia (5) Hypertension Assessment/Plan: -Add ARB if cardiology agrees- was on Losartan? discontinued? Problems reviewed: Yes Code(s): I10 - ESSENTIAL (PRIMARY) HYPERTENSION Qualifiers: Hypertension type: essential hypertension Qualified Code(s): I10 - Essential (primary) hypertension (6) Type 2 diabetes mellitus Assessment/Plan: -Last A1c at 6.8 in 11/2019 -Recheck A1c -BGM AC HS -ISS -Diabetic low sodium diet -Ideally would start Jardiance- non formulary at [facility] -Stat Januvia 50 mg po daily for now Problems reviewed: Yes Code(s): E11.9 - TYPE 2 DIABETES MELLITUS WITHOUT COMPLICATIONS (7) Constipation Assessment/Plan: -Add miralax po daily Problems reviewed: Yes Code(s): K59.00 - CONSTIPATION, UNSPECIFIED Assessment/Plan See problem list
--- NOTE | 2020-03-29 09:25 | CON.CARD ---
Consult Consult Specialty:: Cardiology Referred by:: Dr. Manriquez Reason for Consultation:: Cardiac evaluation - History of Present Illness Chief Complaint: Chest pain History of Present Illness: Patient is an 89 year old /Fil[place]ino descent female well known to our service (sees Dr. 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 Troponin has been negative 3 sets. ECG initially showed complete LBBB but the following ECG revealed RBBB. She continued to exhibit on and off left sided chest discomfort and BP has been elevated. She was given Hydralazine one time dose last night. She was on Losartan previously but has been held due to acute CKD. She was hospitalized in November and was seen by Dr. Fall in February in the office. She has history of COVID pneumonitis. Currently, she complains of intermittent left sided chest discomfort. She appears to be breathing comfortably. She does not appear to have palpitations. Denies fever or chills. Denies cough or expectorations. Denies headache or dizziness. - History Source History Provided By: Patient, Medical Record, Transfer Record Limitations to Obtaining History: Language Barrier - Past Medical History MANAGER BILLING: Yes: CVA Cardio/Vascular: Yes: CAD, CHF, HTN, Hyperlipdemia, Mitral Insufficiency Gastrointestinal: Yes: GERD Renal/: Yes: Renal Failure, Renal Inusuff Endocrine: Yes: Diabetes Mellitus - Past Surgical History Past Surgical History: Yes: CABG, Cholecystectomy, Mastectomy (Right) - Alcohol/Substance Use Hx Alcohol Use: No History of Substance Use: reports: None - Smoking History Smoking history: Never smoked Have you smoked in the past 12 months: No Aproximately how many cigarettes per day: 0 - Social History ADL: Family Assistance History of Recent Travel: No Home Medications - Allergies Allergies/Adverse Reactions: Allergies Allergy/AdvReac Type Severity Reaction Status Date / Time No Known Drug Allergies Allergy Verified 03/28/20 09:57 - Home Medications Home Medications: Ambulatory Orders Clopidogrel Bisulfate [Plavix -] 75 mg PO DAILY 06/12/16 Cyanocobalamin [Vitamin B12 -] 1,000 mcg PO DAILY 06/12/16 Ergocalciferol (Vitamin D2) [Drisdol] 50,000 units PO DAILY 06/12/16 Linaclotide [Linzess] 145 mcg PO DAILY 06/12/16 Multivitamins [Multivit ([facility] Formulary)] 1 tab PO DAILY 06/12/16 [place]-3 Acid Ethyl Esters [Lovaza -] 2,000 mg PO BID 06/12/16 Ranolazine [Ranexa] 500 mg PO BID 06/12/16 Acetaminophen 500 mg PO PRN 03/28/20 Allopurinol [Zyloprim -] 100 mg PO DAILY 03/28/20 Aspirin [Aspirin EC] 81 mg PO DAILY 03/28/20 Atorvastatin Calcium 20 mg PO DAILY 03/28/20 Gabapentin 300 mg PO HS 03/28/20 Mirabegron [Myrbetriq] 25 mg PO DAILY 03/28/20 Nebivolol [Bystolic -] 5 mg PO DAILY 03/28/20 Family Medical History Other Family History: Family history of CAD Review of Systems - Review of Systems Constitutional: denies: Chills, Fever Cardiovascular: reports: Chest Pain, Shortness of Breath. denies: Palpitations Respiratory: reports: SOB. denies: Cough, Hemoptysis, Orthopnea, PND Gastrointestinal: denies: Abdominal Pain, Constipation, Diarrhea, Melena, Nausea, Rectal Bleeding, Vomiting Neurological: denies: Dizziness, Headache, Seizure, Syncope Vital Signs: Vital Signs Temperature 98.6 F 03/29/20 00:14 Pulse Rate 66 03/29/20 00:14 Respiratory Rate 20 03/29/20 00:14 Blood Pressure 158/75 03/29/20 00:14 O2 Sat by Pulse Oximetry (%) 100 03/29/20 00:14 Eyes: Yes: PERRL HENT: Yes: Atraumatic Neck: Yes: Supple Respiratory: Yes: Diminished Gastrointestinal: Yes: Normal Bowel Sounds, Soft. No: Tenderness Cardiovascular: Yes: Regular Rate and Rhythm JVD: No PMI: Non-Displaced Heart Sounds: Yes: S1, S2. No: Gallop Murmur: Yes: Systolic Murmur, Grade 2 Edema: No - Other Data Labs, Other Data: CBC, BMP 03/28/20 10:35 03/28/20 10:16 INR, PTT INR 0.95 (0.83-1.09) 03/28/20 10:35 Troponin, BNP 03/28/20 03/28/20 03/28/20 10:16 10:35 13:40 Troponin I < 0.02 < 0.02 B-Natriuretic Peptide 341.8 Laboratory Results - last 24 hr 03/28/20 03/28/20 03/28/20 10:16 10:35 10:35 WBC 8.7 RBC 4.52 Hgb 13.4 Hct 40.9 MCV 90.5 MCH 29.7 MCHC 32.8 RDW 13.9 D Plt Count 195 D MPV 10.0 Absolute Neuts (auto) 5.1 Neutrophils % 59.0 D Lymphocytes % 33.8 Monocytes % 5.4 Eosinophils % 1.1 Basophils % 0.7 Nucleated RBC % 0 PT with INR 11.20 INR 0.95 Sodium 142 Potassium 5.1 Chloride 113 H Carbon Dioxide 16 L Anion Gap 13 BUN 49.1 H Creatinine 1.5 H Est GFR (CKD-EPI)AfAm 35.43 Est GFR (CKD-EPI)NonAf 30.57 POC Glucometer Random Glucose 159 H Hemoglobin A1c % Calcium 8.5 Total Bilirubin 0.4 AST 29 ALT 16 Alkaline Phosphatase 73 Creatine Kinase 81 Troponin I < 0.02 B-Natriuretic Peptide Total Protein 6.9 Albumin 3.5 COVID-19 ([facility]) 03/28/20 03/28/20 03/29/20 16:47 22:01 06:09 WBC RBC Hgb Hct MCV MCH MCHC RDW Plt Count MPV Absolute Neuts (auto) Neutrophils % Lymphocytes % Monocytes % Eosinophils % Basophils % Nucleated RBC % PT with INR INR Sodium Potassium Chloride Carbon Dioxide Anion Gap BUN Creatinine Est GFR (CKD-EPI)AfAm Est GFR (CKD-EPI)NonAf POC Glucometer 150 89 Random Glucose Hemoglobin A1c % Calcium Total Bilirubin AST ALT Alkaline Phosphatase Creatine Kinase 56 Troponin I < 0.02 B-Natriuretic Peptide Total Protein Albumin COVID-19 ([facility]) 03/29/20 03/29/20 06:58 06:58 WBC RBC Hgb Hct MCV MCH MCHC RDW Plt Count MPV Absolute Neuts (auto) Neutrophils % Lymphocytes % Monocytes % Eosinophils % Basophils % Nucleated RBC % PT with INR INR Sodium Potassium Chloride Carbon Dioxide Anion Gap BUN Creatinine Est GFR (CKD-EPI)AfAm Est GFR (CKD-EPI)NonAf POC Glucometer Random Glucose Hemoglobin A1c % 5.7 Calcium Total Bilirubin AST ALT Alkaline Phosphatase Creatine Kinase 48 Troponin I < 0.02 B-Natriuretic Peptide Total Protein Albumin COVID-19 ([facility]) Initially (03/28/20, 10:03) sinus rhythm with complete LBBB, 1st degree AV block Subsequent ECG (03/28/20 21:36) sinus rhythm with complete RBBB, 1st degree AV block Echo: Report Reviewed (May 01 2019 study normal LVEF 65%, mild AR, trace MR, trace TR) Imaging - Results Chest X-ray: Report Reviewed (Large heart, no acute pathology) Ultrasound: Report Reviewed (No DVT) EKG: Report Reviewed Problem List - Problems (1) NYHA class 2 and ACC/AHA stage 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 Code(s): I50.42 - CHRONIC COMBINED SYSTOLIC AND DIASTOLIC HRT FAIL (2) CKD (chronic kidney disease) Code(s): N18.9 - CHRONIC KIDNEY DISEASE, UNSPECIFIED (3) Chest pain Code(s): R07.9 - CHEST PAIN, UNSPECIFIED (4) Acute on chronic diastolic heart failure Code(s): I50.33 - ACUTE ON CHRONIC DIASTOLIC (CONGESTIVE) HEART FAILURE (5) CHF (congestive heart failure) Code(s): I50.9 - HEART FAILURE, UNSPECIFIED (6) CAD (coronary artery disease) Code(s): I25.10 - ATHSCL HEART DISEASE OF [place] CORONARY ARTERY W/O ANG PCTRS (7) History of CVA (cerebrovascular accident) Code(s): Z86.73 - PRSNL HX OF TIA (TIA), AND CEREB INFRC W/O RESID DEFICITS (8) Hx of CABG Code(s): Z95.1 - PRESENCE OF AORTOCORONARY BYPASS GRAFT (9) Hyperlipidemia Code(s): E78.5 - HYPERLIPIDEMIA, UNSPECIFIED Qualifiers: Hyperlipidemia type: pure hypercholesterolemia Qualified Code(s): E78.00 - Pure hypercholesterolemia, unspecified; E78.0 - Pure hypercholesterolemia (10) Hypertension Code(s): I10 - ESSENTIAL (PRIMARY) HYPERTENSION Qualifiers: Hypertension type: essential hypertension Qualified Code(s): I10 - Essential (primary) hypertension (11) Type 2 diabetes mellitus Code(s): E11.9 - TYPE 2 DIABETES MELLITUS WITHOUT COMPLICATIONS Assessment/Plan 1. CAD s/p CABG, angina pectoris, ACS 2. HTN - labile 3. Chest pain due to above. 4. HTN 5. Hypercholesterolemia 6. Complete LBBB alternating with complete RBBB 7. Chronic combined diastolic/systolic dysfunction with class 1-2 NYHA classification heart failure 8. Insulin dependent Diabetes Mellitus 9. Non-rheumatic mitral and tricuspid valve regurgitation 10. CKD PLAN: 1. Trend troponins, so far negative 2. BP needs to be better controlled. Continue Bystolic 5 mg QD (may uptitrate as needed but with caution). Consider ARB as renal function has stabilized. Resume Losartan but at 50 mg QD (previously was on 100 mg) and uptitrate. Additional BP control can utilize Hydralazine. 3. Continue Ranexa 500 mg BID 4. ASA 81 mg QD and Plavix 75 mg QD 5. Continue Crestor 20 mg QD 6. Continue telemetry monitoring. Due to alternating LBBB and RBBB, she may be at an increased risk of complete heart block in which case she may need pacemaker. Will continue monitoring at the moment Further plans are to follow Follow up with Dr. Pia Fall ([facility]) upon discharge [phone] Hernán Christie MD
[2020-03-29] MEDS: ROSUVASTATIN CA 20 MG TABLET (FP) PO SCH (09:51)
[2020-03-29] MEDS: predniSONE 5 MG TABLET (UD) PO SCH (09:51)
[2020-03-29] MEDS: DULoxetine HCL 30 MG CAPSULE.DR PO SCH (09:51)
[2020-03-29] MEDS: OMEGA-3 ACID ETHYL ESTERS (FATTY-ACIDS) 1 GM CAPSULE (FP) PO SCH ×2 (09:51→21:07)
[2020-03-29] MEDS: sitaGLIPtin PHOSPHATE 50 MG TABLET PO SCH (09:51)
[2020-03-29] MEDS: CLOPIDOGREL BISULFATE 75 MG TABLET (FP) PO SCH (09:51)
[2020-03-29] MEDS: NEBIVOLOL 5 MG TABLET (FP) PO SCH (09:51)
[2020-03-29] MEDS: RANOLAZINE E.R. 500 MG TABLET (FP) PO SCH ×2 (09:51→21:07)
[2020-03-29] MEDS: hydrALAZINE HCL 10 MG TABLET PO SCH ×2 (09:56→21:07)
[2020-03-29] MEDS: LOSARTAN POTASSIUM 50 MG TABLET (FP) PO SCH (09:56)
[2020-03-29] MEDS ORDERED: PATIENT'S OWN MEDICATION (NON-FORMULARY) (Linaclotide [Linzess] 145 MCG) PO SCH (10:00)
[2020-03-29] MEDS: FEBUXOSTAT 40 MG TAB PO SCH (10:09)
[2020-03-29] MEDS: ACETAMINOPHEN 500 MG TABLET (FP) PO PRN (11:59)
[2020-03-29] MEDS: POLYETHYLENE GLYCOL 3350 119 GM BTL PO SCH (18:01)
[2020-03-29] MEDS ORDERED: PT OWN MED DRAWER 7, Y5N ONE (21:02)
[2020-03-29] MEDS: MELATONIN 5 MG TABLETS PO PRN (21:08)
[2020-03-30] MEDS: INSULIN (NOVOLOG) ASPART 100 UNITS/ML 10ML VIAL SQ SCH (06:16)
[2020-03-30] MEDS: sitaGLIPtin PHOSPHATE 50 MG TABLET PO SCH (06:19)
--- NOTE | 2020-03-30 08:24 | PN ---
Progress Note, Physician Chief Complaint: Chest Pain History of Present Illness: NAD Had episode of chest pain overnight Seen by Cardiology serial EKG's no change Serial trops no change BP elevated No abnormality on Tele - Current Medication List Current Medications: Active Medications Acetaminophen (Tylenol -) 500 mg PO Q6H PRN PRN Reason: PAIN LEVEL 1 - 3 Last Admin: 03/29/20 11:59 Dose: 500 mg Documented by: Clopidogrel Bisulfate (Plavix -) 75 mg PO DAILY [facility] Last Admin: 03/29/20 09:51 Dose: 75 mg Documented by: Duloxetine HCl (Cymbalta -) 30 mg PO DAILY [facility] Last Admin: 03/29/20 09:51 Dose: 30 mg Documented by: Febuxostat (Uloric -) 40 mg PO DAILY [facility] Last Admin: 03/29/20 10:09 Dose: 40 mg Documented by: Hydralazine HCl (Apresoline -) 10 mg PO BID [facility] Last Admin: 03/29/20 21:07 Dose: 10 mg Documented by: Insulin Aspart (Novolog Vial) 1 units SQ [facility]; Protocol Last Admin: 03/30/20 06:16 Dose: Not Given Documented by: Losartan Potassium (Cozaar -) 50 mg PO DAILY [facility] Last Admin: 03/29/20 09:56 Dose: 50 mg Documented by: Melatonin (Melatonin) 5 mg PO HS PRN PRN Reason: INSOMNIA Last Admin: 03/29/20 21:08 Dose: 5 mg Documented by: Nebivolol (Bystolic -) 5 mg PO DAILY [facility] Last Admin: 03/29/20 09:51 Dose: 5 mg Documented by: Non-Formulary Medication (Linaclotide [Linzess]) 145 mcg PO DAILY [facility] Xrilu-3-Sqmn Ethyl Esters (Lovaza -) 2 gm PO BID [facility] Last Admin: 03/29/20 21:07 Dose: 2 gm Documented by: Polyethylene Glycol (Miralax (For Daily Use) -) 17 gm PO DAILY [facility] Last Admin: 03/29/20 18:01 Dose: 17 grams Documented by: Prednisone (Deltasone -) 5 mg PO DAILY [facility] Last Admin: 03/29/20 09:51 Dose: 5 mg Documented by: Ranolazine (Ranexa -) 500 mg PO BID [facility] Last Admin: 03/29/20 21:07 Dose: 500 mg Documented by: Rosuvastatin Calcium (Crestor -) 20 mg PO DAILY [facility] Last Admin: 03/29/20 09:51 Dose: 20 mg Documented by: Sitagliptin Phosphate (Januvia -) 50 mg PO DAILY@0700 [facility] Last Admin: 03/30/20 06:19 Dose: 50 mg Documented by: - Objective Vital Signs: Vital Signs Temperature 97.6 F 03/30/20 06:00 Pulse Rate 50 L 03/30/20 06:00 Respiratory Rate 20 03/30/20 06:00 Blood Pressure 164/59 L 03/30/20 06:00 O2 Sat by Pulse Oximetry (%) 95 03/30/20 06:00 Constitutional: Yes: Well Nourished, No Distress, Calm, Obese Cardiovascular: Yes: Regular Rate and Rhythm Respiratory: Yes: Regular, CTA Bilaterally Gastrointestinal: Yes: Normal Bowel Sounds, Soft, Abdomen, Obese Genitourinary: Yes: WNL Musculoskeletal: Yes: WNL Extremities: Yes: WNL Edema: No Peripheral Pulses WNL: Yes Neurological: Yes: Alert, Oriented Psychiatric: Yes: Alert, Oriented Labs: CBC, BMP 03/28/20 10:35 03/28/20 10:16 INR, PTT INR 0.95 (0.83-1.09) 03/28/20 10:35 Problem List - Problems (1) CKD (chronic kidney disease) Assessment/Plan: -Cr at baseline -monitor trend Problems reviewed: Yes Code(s): N18.9 - CHRONIC KIDNEY DISEASE, UNSPECIFIED (2) Chest pain Assessment/Plan: -Tele monitor -Cardiology consult -EKG no changes -Serial Trops negative -Last Echo 05/03- Normal LVEF at 65%, mild tricuspid, mitral and aortic regurg, mild mitral annular calcification, mild aortic sclerosis. -Repeat echo upon Cardiology discretion Problems reviewed: Yes Code(s): R07.9 - CHEST PAIN, UNSPECIFIED (3) CAD (coronary artery disease) Assessment/Plan: -Continue Statin -Continue Plavix -Continue Bystolic Problems reviewed: Yes Code(s): I25.10 - ATHSCL HEART DISEASE OF [place] CORONARY ARTERY W/O ANG PCTRS (4) Hyperlipidemia Problems reviewed: Yes Code(s): E78.5 - HYPERLIPIDEMIA, UNSPECIFIED Qualifiers: Hyperlipidemia type: pure hypercholesterolemia Qualified Code(s): E78.00 - Pure hypercholesterolemia, unspecified; E78.0 - Pure hypercholesterolemia (5) Hypertension Assessment/Plan: -Add ARB if cardiology agrees- was on Losartan? discontinued? Problems reviewed: Yes Code(s): I10 - ESSENTIAL (PRIMARY) HYPERTENSION Qualifiers: Hypertension type: essential hypertension Qualified Code(s): I10 - Essential (primary) hypertension (6) Type 2 diabetes mellitus Assessment/Plan: -Last A1c at 6.8 in 11/2019 -Repeat A1c at 5.7 -D/C BGM AC HS -D/C ISS -continue Diabetic low sodium diet for dietary control -Also chronically on Prednisone -Ideally would recommend Jardiance-given cardiac risks-non formulary at [facility] -Continue Januvia 50 mg po daily for now Problems reviewed: Yes Code(s): E11.9 - TYPE 2 DIABETES MELLITUS WITHOUT COMPLICATIONS (7) Constipation Assessment/Plan: -Miralax po daily -Senna 2 tabs HS -Fleet Enema x 1 Problems reviewed: Yes Code(s): K59.00 - CONSTIPATION, UNSPECIFIED Assessment/Plan See problem list
--- NOTE | 2020-03-30 08:33 | PN ---
Progress Note, Physician Chief Complaint: Less chest pain Tolerating therapy History of Present Illness: Patient was seen and examined. Awake and alert. Chart was reviewed Complained of left sided chest discomfort now appears less - Current Medication List Current Medications: Active Medications Acetaminophen (Tylenol -) 500 mg PO Q6H PRN PRN Reason: PAIN LEVEL 1 - 3 Last Admin: 03/29/20 11:59 Dose: 500 mg Documented by: Clopidogrel Bisulfate (Plavix -) 75 mg PO DAILY [facility] Last Admin: 03/29/20 09:51 Dose: 75 mg Documented by: Duloxetine HCl (Cymbalta -) 30 mg PO DAILY [facility] Last Admin: 03/29/20 09:51 Dose: 30 mg Documented by: Febuxostat (Uloric -) 40 mg PO DAILY [facility] Last Admin: 03/29/20 10:09 Dose: 40 mg Documented by: Hydralazine HCl (Apresoline -) 10 mg PO BID [facility] Last Admin: 03/29/20 21:07 Dose: 10 mg Documented by: Losartan Potassium (Cozaar -) 50 mg PO DAILY [facility] Last Admin: 03/29/20 09:56 Dose: 50 mg Documented by: Melatonin (Melatonin) 5 mg PO HS PRN PRN Reason: INSOMNIA Last Admin: 03/29/20 21:08 Dose: 5 mg Documented by: Nebivolol (Bystolic -) 5 mg PO DAILY [facility] Last Admin: 03/29/20 09:51 Dose: 5 mg Documented by: Non-Formulary Medication (Linaclotide [Linzess]) 145 mcg PO DAILY [facility] [id number] Ethyl Esters (Lovaza -) 2 gm PO BID [facility] Last Admin: 03/29/20 21:07 Dose: 2 gm Documented by: Polyethylene Glycol (Miralax (For Daily Use) -) 17 gm PO DAILY [facility] Last Admin: 03/29/20 18:01 Dose: 17 grams Documented by: Prednisone (Deltasone -) 5 mg PO DAILY [facility] Last Admin: 03/29/20 09:51 Dose: 5 mg Documented by: Ranolazine (Ranexa -) 500 mg PO BID [facility] Last Admin: 03/29/20 21:07 Dose: 500 mg Documented by: Rosuvastatin Calcium (Crestor -) 20 mg PO DAILY [facility] Last Admin: 03/29/20 09:51 Dose: 20 mg Documented by: Sitagliptin Phosphate (Januvia -) 50 mg PO DAILY@0700 [facility] Last Admin: 03/30/20 06:19 Dose: 50 mg Documented by: - Objective Vital Signs: Vital Signs Temperature 97.6 F 03/30/20 06:00 Pulse Rate 50 L 03/30/20 06:00 Respiratory Rate 20 03/30/20 06:00 Blood Pressure 164/59 L 03/30/20 06:00 O2 Sat by Pulse Oximetry (%) 95 03/30/20 06:00 Neck: Yes: Supple Cardiovascular: Yes: Regular Rate and Rhythm, S1, S2 Respiratory: Yes: CTA Bilaterally Gastrointestinal: Yes: Normal Bowel Sounds, Soft. No: Tenderness Edema: No Additional Findings/Remarks: - Review of Systems Constitutional: denies: Chills, Fever Cardiovascular: reports: Chest Pain, Shortness of Breath. denies: Palpitations Respiratory: reports: SOB. 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 Code(s): I50.42 - CHRONIC COMBINED SYSTOLIC AND DIASTOLIC HRT FAIL (2) CKD (chronic kidney disease) Code(s): N18.9 - CHRONIC KIDNEY DISEASE, UNSPECIFIED (3) Chest pain Code(s): R07.9 - CHEST PAIN, UNSPECIFIED (4) Acute on chronic diastolic heart failure Code(s): I50.33 - ACUTE ON CHRONIC DIASTOLIC (CONGESTIVE) HEART FAILURE (5) CHF (congestive heart failure) Code(s): I50.9 - HEART FAILURE, UNSPECIFIED (6) CAD (coronary artery disease) Code(s): I25.10 - ATHSCL HEART DISEASE OF [place] CORONARY ARTERY W/O ANG PCTRS (7) History of CVA (cerebrovascular accident) Code(s): Z86.73 - PRSNL HX OF TIA (TIA), AND CEREB INFRC W/O RESID DEFICITS (8) Hx of CABG Code(s): Z95.1 - PRESENCE OF AORTOCORONARY BYPASS GRAFT (9) Hyperlipidemia Code(s): E78.5 - HYPERLIPIDEMIA, UNSPECIFIED Qualifiers: Hyperlipidemia type: pure hypercholesterolemia Qualified Code(s): E78.00 - Pure hypercholesterolemia, unspecified; E78.0 - Pure hypercholesterolemia (10) Hypertension Code(s): I10 - ESSENTIAL (PRIMARY) HYPERTENSION Qualifiers: Hypertension type: essential hypertension Qualified Code(s): I10 - Essential (primary) hypertension (11) Type 2 diabetes mellitus Code(s): E11.9 - TYPE 2 DIABETES MELLITUS WITHOUT COMPLICATIONS Assessment/Plan 1. CAD s/p CABG, angina pectoris, ACS 2. HTN - labile 3. Chest pain due to above. 4. HTN 5. Hypercholesterolemia 6. Complete LBBB alternating with complete RBBB 7. Chronic combined diastolic/systolic dysfunction with class 1-2 NYHA classification heart failure 8. Insulin dependent Diabetes Mellitus 9. Non-rheumatic mitral and tricuspid valve regurgitation 10. CKD PLAN: 1. Trend troponins, so far negative 2. BP needs to be better controlled. Continue Bystolic 5 mg QD (may uptitrate as needed but with caution). Continue Losartan currently at 50 mg QD (previously was on 100 mg) and uptitrate. Increase Hydralazine to 25 mg BID 3. Continue Ranexa 500 mg BID 4. ASA 81 mg QD and Plavix 75 mg QD 5. Continue Crestor 20 mg QD 6. Continue telemetry monitoring. Due to alternating LBBB and RBBB, she may be at an increased risk of complete heart block in which case she may need pacemaker. Will continue monitoring at the moment. Echocardiography to be done in AM Further plans are to follow Follow up with Dr[facility] Pia Fall ([facility]) upon discharge [phone] Hernán Christie MD
[2020-03-30] MEDS ORDERED: PT OWN MED DRAWER 7, Y5N ONE ×2 (09:28→21:12)
[2020-03-30] MEDS: DULoxetine HCL 30 MG CAPSULE.DR PO SCH (09:33)
[2020-03-30] MEDS: CLOPIDOGREL BISULFATE 75 MG TABLET (FP) PO SCH (09:33)
[2020-03-30] MEDS: RANOLAZINE E.R. 500 MG TABLET (FP) PO SCH ×2 (09:33→21:14)
[2020-03-30] MEDS: predniSONE 5 MG TABLET (UD) PO SCH (09:33)
[2020-03-30] MEDS: NEBIVOLOL 5 MG TABLET (FP) PO SCH (09:33)
[2020-03-30] MEDS: ROSUVASTATIN CA 20 MG TABLET (FP) PO SCH (09:33)
[2020-03-30] MEDS: hydrALAZINE HCL 25 MG TABLET (FP) PO SCH ×2 (09:33→21:14)
[2020-03-30] MEDS: LOSARTAN POTASSIUM 50 MG TABLET (FP) PO SCH (09:34)
[2020-03-30] MEDS: OMEGA-3 ACID ETHYL ESTERS (FATTY-ACIDS) 1 GM CAPSULE (FP) PO SCH ×2 (09:35→21:14)
[2020-03-30] MEDS: FEBUXOSTAT 40 MG TAB PO SCH (09:35)
[2020-03-30] MEDS: POLYETHYLENE GLYCOL 3350 119 GM BTL PO SCH (09:36)
[2020-03-30] MEDS: ACETAMINOPHEN 500 MG TABLET (FP) PO PRN (11:17)
--- NOTE | 2020-03-30 18:31 | EKG ---
Test Reason : Blood Pressure : / mmHG Vent. Rate : 062 BPM Atrial Rate : 062 BPM P-R Int : 244 ms QRS Dur : 144 ms QT Int : 472 ms P-R-T Axes : 085 095 256 degrees QTc Int : 479 ms SINUS RHYTHM WITH 1ST DEGREE A-V BLOCK RIGHT BUNDLE BRANCH BLOCK LEFT VENTRICULAR HYPERTROPHY WITH QRS WIDENING AND REPOLARIZATION ABNORMALITY ABNORMAL ECG Confirmed by MD BETTENCOURT MOYSES ([id number]) on 03/30/2020 6:31:16 PM Referred By: WAQAS LONDON Confirmed By:HELEN BETTENCOURT MD
--- NOTE | 2020-03-30 18:46 | EKG ---
Test Reason : Blood Pressure : / mmHG Vent. Rate : 073 BPM Atrial Rate : 073 BPM P-R Int : 254 ms QRS Dur : 144 ms QT Int : 432 ms P-R-T Axes : 048 056 201 degrees QTc Int : 475 ms SINUS RHYTHM WITH 1ST DEGREE A-V BLOCK LEFT BUNDLE BRANCH BLOCK ABNORMAL ECG WHEN COMPARED WITH ECG OF 28-NOV-2019 10:33, QRS DURATION HAS DECREASED Confirmed by MD SG, HELEN ([id number]) on 03/30/2020 6:45:47 PM Referred By: Confirmed By:HELEN BETTENCOURT MD
[2020-03-30] MEDS: MELATONIN 5 MG TABLETS PO PRN (21:14)
[2020-03-30] MEDS ORDERED: SENNOSIDES 8.6MG TABLET (FP) PO PRN (22:00)
[2020-03-31] MEDS: sitaGLIPtin PHOSPHATE 50 MG TABLET PO SCH (06:02)
[2020-03-31 07:26] LABS: BASO % 0.8 % (0-2.0); EOS % 1.6 % (0-4.5); HEMATOCRIT 40.4 % (32.4-45.2); HEMOGLOBIN 13.1 GM/dL (10.7-15.3); LYMPH % 38.7 % (8-40); MCH 29.2 pg (25.7-33.7); MCHC 32.4 g/dl (32.0-36.0); MEAN PLT VOLUME 9.6 fl (7.5-11.1); MONO % 6.3 % (3.8-10.2); NEUT % 52.6 % (42.8-82.8); PLATELET COUNT 191 K/MM3 (134-434); RBC 4.49 M/mm3 (3.60-5.2); RDW 13.9 % (11.6-15.6); WHITE BLOOD COUNT 9.5 K/mm3 (4.0-10.0)
[2020-03-31 07:41] LABS: ALBUMIN 3.3 g/dl (3.4-5.0); BILIRUBIN,TOTAL 0.3 mg/dL (0.2-1); BLOOD UREA NITROGEN 40.2 mg/dL (7-18); CALCIUM 8.5 mg/dL (8.5-10.1); CREATININE 1.7 mg/dL (0.55-1.3); POTASSIUM 4.8 mmol/L (3.5-5.1); TOT PROT 6.4 g/dl (6.4-8.2)
--- NOTE | 2020-03-31 08:01 | PN ---
Progress Note, Physician - Current Medication List Current Medications: Active Medications Acetaminophen (Tylenol -) 500 mg PO Q6H PRN PRN Reason: PAIN LEVEL 1 - 3 Last Admin: 03/30/20 11:17 Dose: 500 mg Documented by: Clopidogrel Bisulfate (Plavix -) 75 mg PO DAILY [facility] Last Admin: 03/30/20 09:33 Dose: 75 mg Documented by: Duloxetine HCl (Cymbalta -) 30 mg PO DAILY [facility] Last Admin: 03/30/20 09:33 Dose: 30 mg Documented by: Febuxostat (Uloric -) 40 mg PO DAILY [facility] Last Admin: 03/30/20 09:35 Dose: 40 mg Documented by: Hydralazine HCl (Apresoline -) 25 mg PO BID [facility] Last Admin: 03/30/20 21:14 Dose: 25 mg Documented by: Losartan Potassium (Cozaar -) 50 mg PO DAILY [facility] Last Admin: 03/30/20 09:34 Dose: 50 mg Documented by: Melatonin (Melatonin) 5 mg PO HS PRN PRN Reason: INSOMNIA Last Admin: 03/30/20 21:14 Dose: 5 mg Documented by: Nebivolol (Bystolic -) 5 mg PO DAILY [facility] Last Admin: 03/30/20 09:33 Dose: 5 mg Documented by: Non-Formulary Medication (Linaclotide [Linzess]) 145 mcg PO DAILY [facility] [id number] Ethyl Esters (Lovaza -) 2 gm PO BID [facility] Last Admin: 03/30/20 21:14 Dose: 2 gm Documented by: Polyethylene Glycol (Miralax (For Daily Use) -) 17 gm PO DAILY [facility] Last Admin: 03/30/20 09:36 Dose: 17 grams Documented by: Prednisone (Deltasone -) 5 mg PO DAILY [facility] Last Admin: 03/30/20 09:33 Dose: 5 mg Documented by: Ranolazine (Ranexa -) 500 mg PO BID [facility] Last Admin: 03/30/20 21:14 Dose: 500 mg Documented by: Rosuvastatin Calcium (Crestor -) 20 mg PO DAILY [facility] Last Admin: 03/30/20 09:33 Dose: 20 mg Documented by: Senna (Senna -) 2 tab PO HS PRN PRN Reason: CONSTIPATION Sitagliptin Phosphate (Januvia -) 50 mg PO DAILY@0700 [facility] Last Admin: 03/31/20 06:02 Dose: 50 mg Documented by: - Objective Vital Signs: Vital Signs Temperature 97.9 F 03/31/20 06:00 Pulse Rate 58 L 03/31/20 06:00 Respiratory Rate 18 03/31/20 06:00 Blood Pressure 170/83 03/31/20 06:00 O2 Sat by Pulse Oximetry (%) 96 03/31/20 06:00 Cardiovascular: Yes: S1, S2 Respiratory: Yes: Regular, CTA Bilaterally Gastrointestinal: Yes: Normal Bowel Sounds, Soft Labs: CBC, BMP 03/31/20 06:48 03/31/20 06:48 INR, PTT INR 0.95 (0.83-1.09) 03/28/20 10:35 Problem List - Problems (1) Chest pain Code(s): R07.9 - CHEST PAIN, UNSPECIFIED (2) CHF (congestive heart failure) Code(s): I50.9 - HEART FAILURE, UNSPECIFIED (3) CAD (coronary artery disease) Code(s): I25.10 - ATHSCL HEART DISEASE OF [place] CORONARY ARTERY W/O ANG PCTRS (4) Hx of CABG Code(s): Z95.1 - PRESENCE OF AORTOCORONARY BYPASS GRAFT (5) Type 2 diabetes mellitus Code(s): E11.9 - TYPE 2 DIABETES MELLITUS WITHOUT COMPLICATIONS Assessment/Plan - Problems (1) CKD (chronic kidney disease) Assessment/Plan: -Cr at baseline -monitor trend Problems reviewed: Yes Code(s): N18.9 - CHRONIC KIDNEY DISEASE, UNSPECIFIED (2) Chest pain Assessment/Plan: -Tele monitor -Cardiology consult -EKG no changes -Serial Trops negative -Last Echo 05/03- Normal LVEF at 65%, mild tricuspid, mitral and aortic regurg, mild mitral annular calcification, mild aortic sclerosis. -Repeat echo upon Cardiology discretion-Pending Problems reviewed: Yes Code(s): R07.9 - CHEST PAIN, UNSPECIFIED (3) CAD (coronary artery disease) Assessment/Plan: -Continue Statin -Continue Plavix -Continue Bystolic Problems reviewed: Yes Code(s): I25.10 - ATHSCL HEART DISEASE OF [place] CORONARY ARTERY W/O ANG PCTRS (4) Hyperlipidemia Problems reviewed: Yes Code(s): E78.5 - HYPERLIPIDEMIA, UNSPECIFIED Qualifiers: Hyperlipidemia type: pure hypercholesterolemia Qualified Code(s): E78.00 - Pure hypercholesterolemia, unspecified; E78.0 - Pure hypercholesterolemia (5) Hypertension Assessment/Plan: -Add ARB if cardiology agrees- was on Losartan? discontinued? Problems reviewed: Yes Code(s): I10 - ESSENTIAL (PRIMARY) HYPERTENSION Qualifiers: Hypertension type: essential hypertension Qualified Code(s): I10 - Essential (primary) hypertension (6) Type 2 diabetes mellitus Assessment/Plan: -Last A1c at 6.8 in 11/2019 -Repeat A1c at 5.7 -D/C BGM AC HS -D/C ISS -continue Diabetic low sodium diet for dietary control -Also chronically on Prednisone -Ideally would recommend Jardiance-given cardiac risks-non formulary at [facility] -Continue Januvia 50 mg po daily for now Problems reviewed: Yes Code(s): E11.9 - TYPE 2 DIABETES MELLITUS WITHOUT COMPLICATIONS (7) Constipation Assessment/Plan: -Miralax po daily -Senna 2 tabs HS -Fleet Enema x 1 Problems reviewed: Yes Code(s): K59.00 - CONSTIPATION, UNSPECIFIED (8) Arrhythmia Assessment/Plan: -RBBB/LBBB -TELE--CARDIO MONITORING--?PACEMAKER
--- NOTE | 2020-03-31 08:42 | PN ---
Progress Note, Physician - Current Medication List Current Medications: Active Medications Acetaminophen (Tylenol -) 500 mg PO Q6H PRN PRN Reason: PAIN LEVEL 1 - 3 Last Admin: 03/30/20 11:17 Dose: 500 mg Documented by: Clopidogrel Bisulfate (Plavix -) 75 mg PO DAILY [facility] Last Admin: 03/30/20 09:33 Dose: 75 mg Documented by: Duloxetine HCl (Cymbalta -) 30 mg PO DAILY [facility] Last Admin: 03/30/20 09:33 Dose: 30 mg Documented by: Febuxostat (Uloric -) 40 mg PO DAILY [facility] Last Admin: 03/30/20 09:35 Dose: 40 mg Documented by: Hydralazine HCl (Apresoline -) 25 mg PO BID [facility] Last Admin: 03/30/20 21:14 Dose: 25 mg Documented by: Losartan Potassium (Cozaar -) 50 mg PO DAILY [facility] Last Admin: 03/30/20 09:34 Dose: 50 mg Documented by: Melatonin (Melatonin) 5 mg PO HS PRN PRN Reason: INSOMNIA Last Admin: 03/30/20 21:14 Dose: 5 mg Documented by: Nebivolol (Bystolic -) 5 mg PO DAILY [facility] Last Admin: 03/30/20 09:33 Dose: 5 mg Documented by: Non-Formulary Medication (Linaclotide [Linzess]) 145 mcg PO DAILY [facility] [id number] Ethyl Esters (Lovaza -) 2 gm PO BID [facility] Last Admin: 03/30/20 21:14 Dose: 2 gm Documented by: Polyethylene Glycol (Miralax (For Daily Use) -) 17 gm PO DAILY [facility] Last Admin: 03/30/20 09:36 Dose: 17 grams Documented by: Prednisone (Deltasone -) 5 mg PO DAILY [facility] Last Admin: 03/30/20 09:33 Dose: 5 mg Documented by: Ranolazine (Ranexa -) 500 mg PO BID [facility] Last Admin: 03/30/20 21:14 Dose: 500 mg Documented by: Rosuvastatin Calcium (Crestor -) 20 mg PO DAILY [facility] Last Admin: 03/30/20 09:33 Dose: 20 mg Documented by: Senna (Senna -) 2 tab PO HS PRN PRN Reason: CONSTIPATION Sitagliptin Phosphate (Januvia -) 50 mg PO DAILY@0700 [facility] Last Admin: 03/31/20 06:02 Dose: 50 mg Documented by: - Objective Vital Signs: Vital Signs Temperature 97.9 F 03/31/20 06:00 Pulse Rate 58 L 03/31/20 06:00 Respiratory Rate 18 03/31/20 06:00 Blood Pressure 170/83 03/31/20 06:00 O2 Sat by Pulse Oximetry (%) 96 03/31/20 06:00 Labs: CBC, BMP 03/31/20 06:48 03/31/20 06:48 INR, PTT INR 0.95 (0.83-1.09) 03/28/20 10:35 Assessment/Plan Pharmacologic Lexiscan myocardial perfusion imaging study performed June 12, 2019 revealed small size apical wall defect compatible with apical thinning/attenuation- normal variant with normal left ventricular contraction pattern on LV gated analysis with calculated left ventricular ejection fraction of 60% at rest and 55% post Lexiscan infusion. Echocardiography performed May 01, 2019 revealed normal left ventricular size and systolic function with calculated LVEF of 65%, normal right ventricular size and systolic function, aortic valve sclerosis with no evidence of leaflet restriction and mild aortic valve regurgitation, mitral annular calcification, trace mitral valve regurgitation, trace tricuspid valve regurgitation, with calculated RVSP of 24.4 mmHg. Echocardiography performed October 19, 2018 revealed mild degree of concentric left ventricular hypertrophy with overall preserved left ventricular systolic function estimated LVEF between 55-60%, grade II diastolic dysfunction with elevated filling pressures, normal right ventricular size and systolic function, aortic valve leaflet sclerosis with no evidence of leaflet restriction and mild aortic valve regurgitation, mild mitral valve regurgitation with no significant tricuspid valve regurgitation. 1. CAD s/p CABG, angina pectoris, ACS 2. HTN - labile 3. Chest pain due to above. 4. HTN 5. Hypercholesterolemia 6. Complete LBBB alternating with complete RBBB 7. Chronic combined diastolic/systolic dysfunction with class 1-2 NYHA classification heart failure 8. Insulin dependent Diabetes Mellitus 9. Non-rheumatic mitral and tricuspid valve regurgitation 10. CKD PLAN: 1. Trend troponins, so far negative 2. BP needs to be better controlled. Continue Bystolic 5 mg QD (may uptitrate as needed but with caution). Continue Losartan currently at 50 mg QD (previously was on 100 mg) and uptitrate. Increase Hydralazine to 25 mg BID 3. Continue Ranexa 500 mg BID 4. ASA 81 mg QD and Plavix 75 mg QD 5. Continue Crestor 20 mg QD 6. Continue telemetry monitoring. Due to alternating LBBB and RBBB, she may be at an increased risk of complete heart block in which case she may need pacemaker. Will continue monitoring at the moment. Echocardiography to be done in AM Acetaminophen (Tylenol -) 500 mg PO Q6H PRN PRN Reason: PAIN LEVEL 1 - 3 Last Admin: 03/30/20 11:17 Dose: 500 mg Documented by: Clopidogrel Bisulfate (Plavix -) 75 mg PO DAILY [facility] Last Admin: 03/30/20 09:33 Dose: 75 mg Documented by: Duloxetine HCl (Cymbalta -) 30 mg PO DAILY [facility] Last Admin: 03/30/20 09:33 Dose: 30 mg Documented by: Febuxostat (Uloric -) 40 mg PO DAILY [facility] Last Admin: 03/30/20 09:35 Dose: 40 mg Documented by: Hydralazine HCl (Apresoline -) 25 mg PO BID [facility] Last Admin: 03/30/20 21:14 Dose: 25 mg Documented by: Losartan Potassium (Cozaar -) 50 mg PO DAILY [facility] Last Admin: 03/30/20 09:34 Dose: 50 mg Documented by: Melatonin (Melatonin) 5 mg PO HS PRN PRN Reason: INSOMNIA Last Admin: 03/30/20 21:14 Dose: 5 mg Documented by: Nebivolol (Bystolic -) 5 mg PO DAILY [facility] Last Admin: 03/30/20 09:33 Dose: 5 mg Documented by: Non-Formulary Medication (Linaclotide [Linzess]) 145 mcg PO DAILY [facility] [id number] Ethyl Esters (Lovaza -) 2 gm PO BID [facility] Last Admin: 03/30/20 21:14 Dose: 2 gm Documented by: Polyethylene Glycol (Miralax (For Daily Use) -) 17 gm PO DAILY [facility] Last Admin: 03/30/20 09:36 Dose: 17 grams Documented by: Prednisone (Deltasone -) 5 mg PO DAILY [facility] Last Admin: 03/30/20 09:33 Dose: 5 mg Documented by: Ranolazine (Ranexa -) 500 mg PO BID [facility] Last Admin: 03/30/20 21:14 Dose: 500 mg Documented by: Rosuvastatin Calcium (Crestor -) 20 mg PO DAILY [facility] Last Admin: 03/30/20 09:33 Dose: 20 mg Documented by: Loni (Senna -) 2 tab PO HS PRN PRN Reason: CONSTIPATION Sitagliptin Phosphate (Januvia -) 50 mg PO DAILY@0700 [facility] Last Admin: 03/31/20 06:02 Dose: 50 mg Documented by:
[2020-03-31] MEDS ORDERED: PT OWN MED DRAWER 7, Y5N ONE (08:54)
[2020-03-31] MEDS: OMEGA-3 ACID ETHYL ESTERS (FATTY-ACIDS) 1 GM CAPSULE (FP) PO SCH ×2 (09:16→21:45)
[2020-03-31] MEDS: NEBIVOLOL 5 MG TABLET (FP) PO SCH (09:17)
[2020-03-31] MEDS: DULoxetine HCL 30 MG CAPSULE.DR PO SCH (09:17)
[2020-03-31] MEDS: ACETAMINOPHEN 500 MG TABLET (FP) PO PRN ×2 (09:17→21:48)
[2020-03-31] MEDS: predniSONE 5 MG TABLET (UD) PO SCH (09:17)
[2020-03-31] MEDS: RANOLAZINE E.R. 500 MG TABLET (FP) PO SCH ×2 (09:17→21:45)
[2020-03-31] MEDS: CLOPIDOGREL BISULFATE 75 MG TABLET (FP) PO SCH (09:17)
[2020-03-31] MEDS: ROSUVASTATIN CA 20 MG TABLET (FP) PO SCH (09:17)
[2020-03-31] MEDS: hydrALAZINE HCL 25 MG TABLET (FP) PO SCH ×3 (09:17→21:45)
[2020-03-31] MEDS: FEBUXOSTAT 40 MG TAB PO SCH (09:18)
[2020-03-31] MEDS: LOSARTAN POTASSIUM 50 MG TABLET (FP) PO SCH (09:18)
[2020-03-31] MEDS: POLYETHYLENE GLYCOL 3350 119 GM BTL PO SCH (09:28)
--- NOTE | 2020-03-31 10:34 | PN ---
Progress Note, Physician Chief Complaint: Less chest pain Tolerating therapy History of Present Illness: Patient was seen and examined. Awake and alert. Chart was reviewed Complains of intermittent dizziness Denies chest pain this AM - Current Medication List Current Medications: Active Medications Acetaminophen (Tylenol -) 500 mg PO Q6H PRN PRN Reason: PAIN LEVEL 1 - 3 Last Admin: 03/31/20 09:17 Dose: 500 mg Documented by: Clopidogrel Bisulfate (Plavix -) 75 mg PO DAILY [facility] Last Admin: 03/31/20 09:17 Dose: 75 mg Documented by: Duloxetine HCl (Cymbalta -) 30 mg PO DAILY [facility] Last Admin: 03/31/20 09:17 Dose: 30 mg Documented by: Febuxostat (Uloric -) 40 mg PO DAILY [facility] Last Admin: 03/31/20 09:18 Dose: 40 mg Documented by: Hydralazine HCl (Apresoline -) 25 mg PO BID [facility] Last Admin: 03/31/20 09:17 Dose: 25 mg Documented by: Losartan Potassium (Cozaar -) 50 mg PO DAILY [facility] Last Admin: 03/31/20 09:18 Dose: 50 mg Documented by: Melatonin (Melatonin) 5 mg PO HS PRN PRN Reason: INSOMNIA Last Admin: 03/30/20 21:14 Dose: 5 mg Documented by: Nebivolol (Bystolic -) 5 mg PO DAILY [facility] Last Admin: 03/31/20 09:17 Dose: 5 mg Documented by: Non-Formulary Medication (Linaclotide [Linzess]) 145 mcg PO DAILY [facility] Uonyo-7-Wpik Ethyl Esters (Lovaza -) 2 gm PO BID [facility] Last Admin: 03/31/20 09:16 Dose: 2 gm Documented by: Polyethylene Glycol (Miralax (For Daily Use) -) 17 gm PO DAILY [facility] Last Admin: 03/31/20 09:28 Dose: 17 grams Documented by: Prednisone (Deltasone -) 5 mg PO DAILY [facility] Last Admin: 03/31/20 09:17 Dose: 5 mg Documented by: Ranolazine (Ranexa -) 500 mg PO BID [facility] Last Admin: 03/31/20 09:17 Dose: 500 mg Documented by: Rosuvastatin Calcium (Crestor -) 20 mg PO DAILY [facility] Last Admin: 03/31/20 09:17 Dose: 20 mg Documented by: Senna (Senna -) 2 tab PO HS PRN PRN Reason: CONSTIPATION Sitagliptin Phosphate (Januvia -) 50 mg PO DAILY@0700 [facility] Last Admin: 03/31/20 06:02 Dose: 50 mg Documented by: - Objective Vital Signs: Vital Signs Temperature 97.9 F 03/31/20 06:00 Pulse Rate 58 L 03/31/20 06:00 Respiratory Rate 18 03/31/20 06:00 Blood Pressure 170/83 03/31/20 06:00 O2 Sat by Pulse Oximetry (%) 96 03/31/20 06:00 Neck: Yes: Supple Cardiovascular: Yes: Regular Rate and Rhythm, S1, S2 Respiratory: Yes: Diminished Gastrointestinal: Yes: Normal Bowel Sounds, Soft. No: Tenderness Edema: No Additional Findings/Remarks: - Review of Systems Constitutional: denies: Chills, Fever Cardiovascular: reports: Chest Pain, Shortness of Breath. denies: Palpitations Respiratory: reports: SOB. 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 Code(s): I50.42 - CHRONIC COMBINED SYSTOLIC AND DIASTOLIC HRT FAIL (2) CKD (chronic kidney disease) Code(s): N18.9 - CHRONIC KIDNEY DISEASE, UNSPECIFIED (3) Chest pain Code(s): R07.9 - CHEST PAIN, UNSPECIFIED (4) Acute on chronic diastolic heart failure Code(s): I50.33 - ACUTE ON CHRONIC DIASTOLIC (CONGESTIVE) HEART FAILURE (5) CHF (congestive heart failure) Code(s): I50.9 - HEART FAILURE, UNSPECIFIED (6) CAD (coronary artery disease) Code(s): I25.10 - ATHSCL HEART DISEASE OF [place] CORONARY ARTERY W/O ANG PCTRS (7) History of CVA (cerebrovascular accident) Code(s): Z86.73 - PRSNL HX OF TIA (TIA), AND CEREB INFRC W/O RESID DEFICITS (8) Hx of CABG Code(s): Z95.1 - PRESENCE OF AORTOCORONARY BYPASS GRAFT (9) Hyperlipidemia Code(s): E78.5 - HYPERLIPIDEMIA, UNSPECIFIED Qualifiers: Hyperlipidemia type: pure hypercholesterolemia Qualified Code(s): E78.00 - Pure hypercholesterolemia, unspecified; E78.0 - Pure hypercholesterolemia (10) Hypertension Code(s): I10 - ESSENTIAL (PRIMARY) HYPERTENSION Qualifiers: Hypertension type: essential hypertension Qualified Code(s): I10 - Essential (primary) hypertension (11) Type 2 diabetes mellitus Code(s): E11.9 - TYPE 2 DIABETES MELLITUS WITHOUT COMPLICATIONS Assessment/Plan 1. CAD s/p CABG, angina pectoris, ACS 2. HTN - labile 3. Chest pain due to above. 4. HTN 5. Hypercholesterolemia 6. Complete LBBB alternating with complete RBBB 7. Chronic combined diastolic/systolic dysfunction with class 1-2 NYHA classification heart failure 8. Insulin dependent Diabetes Mellitus 9. Non-rheumatic mitral and tricuspid valve regurgitation 10. CKD PLAN: 1. Trend troponins, so far negative 2. BP needs to be better controlled. Continue Bystolic 5 mg QD (may uptitrate as needed but with caution). Continue Losartan currently at 50 mg QD (previously was on 100 mg) and uptitrate. Increase Hydralazine to 25 mg TID (Cr today 1.7 increased from 1.5) 3. Continue Ranexa 500 mg BID 4. ASA 81 mg QD and Plavix 75 mg QD 5. Continue Crestor 20 mg QD 6. Continue telemetry monitoring. Due to alternating LBBB and RBBB, she may be at an increased risk of complete heart block in which case she may need pacemaker. Will continue monitoring at the moment. Echocardiography to assess LV/RV and valvular function Further plans are to follow Follow up with Dr. Pia Fall ([facility]) upon discharge [phone] Hernán Christie MD
--- NOTE | 2020-03-31 16:28 | ECHO ---
Name: FRANCO TRAMMELL Exam:Adult Echocardiogram Study Date: 03/31/2020 03:37 PM Age: 89 yrs Reason For Study: HTN, Dizziness, Arrhythmia Height: 65 in Weight: 211 lb BSA: 2.0 m2 MMode/2D Measurements & Calculations RVDd: 3.7 cm Ao root diam: 2.6 cm IVSd: 1.0 cm LA dimension: 4.9 cm LVIDd: 5.4 cm ACS: 1.3 cm LVIDs: 3.7 cm LVPWd: 1.1 cm EDV(Teich): 139.0 ml LVOT diam: 2.0 cm ESV(Teich): 58.4 ml LAV (MOD-bp): 60.0 ml TAPSE: 1.7 cm RV S Сергей: 10.0 cm/sec Doppler Measurements & Calculations MV E max сергей: 103.0 cm/sec Ao V2 max: 167.0 cm/sec MV A max сергей: 134.5 cm/sec Ao max P.1 mmHg MV E/A: 0.77 Ao V2 mean: 110.6 cm/sec MV dec time: 0.28 sec Ao mean P.7 mmHg Ao V2 VTI: 35.4 cm ABIODUN(I,D): 2.7 cm2 ABIODUN(V,D): 2.3 cm2 LV V1 max P.3 mmHg SV(LVOT): 96.6 ml LV V1 mean P.4 mmHg LV V1 max: 125.2 cm/sec LV V1 mean: 85.9 cm/sec LV V1 VTI: 31.1 cm TR max сергей: 249.8 cm/sec PA V2 max: 130.3 cm/sec TR max P.0 mmHg PA max P.8 mmHg PA acc slope: 1208 cm/sec2 PA acc time: 0.07 sec Med Peak E' Сергей: 3.5 cm/sec PA pr(Accel): 45.7 mmHg Med E/e': 29.1 Lat Peak E' Сергей: 5.1 cm/sec Lat E/e': 20.3 Pulm Sys Сергей: 59.3 cm/sec Pulm Tadeo Сергей: 44.2 cm/sec Pulm S/D: 1.3 Tech Comments TDS due to body habitus. Patient scanned supine. Procedure A complete two-dimensional transthoracic echocardiogram was performed (2D, M-mode, Doppler and color flow Doppler). Technically limited study. Left Ventricle The left ventricle is normal in size. Left ventricular systolic function is normal. Ejection Fraction = 60- 65%. LV diastology reveals E/A reversal and TDI suggestive of impaired relaxation and elevated fillin g pressure. No regional wall motion abnormalities noted. Right Ventricle The right ventricle is not well visualized. Atria The left atrial size is normal. LA volume index is 30 ml/m2. Right atrial size is normal. Mitral Valve The mitral valve is normal in structure and function. There is mild mitral regurgitation. Tricuspid Valve The tricuspid valve is normal in structure and function. There is mild tricuspid regurgitation. PASP is at least 28 mmHg if RA pressure is assumed 3 mmhg. Aortic Valve There is mild aortic sclerosis.;. No aortic regurgitation is present. Pulmonic Valve The pulmonic valve is not well visualized. Great Vessels The aortic root is normal size. Pericardium/Pleura There is no pericardial effusion. Interpretation Summary Technically limited study The left ventricle is normal in size. Left ventricular systolic function is normal. No regional wall motion abnormalities noted. Ejection Fraction = 60-65%. LV diastology reveals E/A reversal and TDI suggestive of impaired relaxation and elevated filling pre ssure The left atrial size is normal. LA volume index is 30 ml/m2 Right atrial size is normal. There is mild mitral regurgitation. There is mild tricuspid regurgitation. PASP is at least 28 mmHg if RA pressure is assumed 3 mmhg There is mild aortic sclerosis. There is no pericardial effusion. Hernán Christie MD 03/31/2020 04:27 PM
[2020-03-31] MEDS: MELATONIN 5 MG TABLETS PO PRN (21:48)
[2020-04-01 03:27] VITALS: TEMP 98.1
[2020-04-01] MEDS: sitaGLIPtin PHOSPHATE 50 MG TABLET PO SCH (06:13)
[2020-04-01] MEDS: hydrALAZINE HCL 25 MG TABLET (FP) PO SCH ×2 (06:13→13:33)
--- NOTE | 2020-04-01 06:31 | PN ---
Progress Note (short form) - Note Progress Note: Chief Complaint: Events noted, notes reviewed, sitting in bed, reports vague left-sided chest discomfort which is transitory and it subsides spontaneously within a few seconds, continues to report generalized weakness, continues to report persistent dyspnea but improved, denies any orthopnea or PND, patient is upset that they changed her room History of Present Illness: Seen or examined on telemetry. 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 recommend outpatient evaluation by EP service and eventual pacemaker implantation Current Medications: Current Medications Generic Name Dose Route Start Last Admin Trade Name Freq PRN Reason Stop Dose Admin Acetaminophen 500 mg 03/28/20 16:16 03/31/20 21:48 Tylenol - PO 500 mg Q6H PRN Administration PAIN LEVEL 1 - 3 Clopidogrel Bisulfate 75 mg 03/29/20 10:00 03/31/20 09:17 Plavix - PO 75 mg DAILY [facility] Administration Duloxetine HCl 30 mg 03/29/20 10:00 03/31/20 09:17 Cymbalta - PO 30 mg DAILY [facility] Administration Febuxostat 40 mg 03/29/20 10:00 03/31/20 09:18 Uloric - PO 40 mg DAILY [facility] Administration Hydralazine HCl 25 mg 03/31/20 14:00 04/01/20 06:13 Apresoline - PO 25 mg TID [facility] Administration Losartan Potassium 50 mg 03/29/20 10:00 03/31/20 09:18 Cozaar - PO 50 mg DAILY [facility] Administration Melatonin 5 mg 03/29/20 02:29 03/31/20 21:48 Melatonin PO 5 mg HS PRN Administration INSOMNIA Nebivolol 5 mg 03/29/20 10:00 03/31/20 09:17 Bystolic - PO 5 mg DAILY [facility] Administration Non-Formulary Medication 145 mcg 03/29/20 10:00 Linaclotide [Linzess] PO DAILY [facility] [place]-4-Buev Ethyl Esters 2 gm 03/28/20 22:00 08/17/20 21:45 Lovaza - PO 2 gm BID [facility] Administration Polyethylene Glycol 17 gm 03/29/20 18:00 03/31/20 09:28 Miralax (For Daily Use) - PO 17 grams DAILY [facility] Administration Prednisone 5 mg 03/29/20 10:00 03/31/20 09:17 Deltasone - PO 5 mg DAILY [facility] Administration Ranolazine 500 mg 03/28/20 22:00 03/31/20 21:45 Ranexa - PO 500 mg BID [facility] Administration Rosuvastatin Calcium 20 mg 03/29/20 10:00 03/31/20 09:17 Crestor - PO 20 mg DAILY [facility] Administration Senna 2 tab 03/30/20 22:00 Senna - PO HS PRN CONSTIPATION Sitagliptin Phosphate 50 mg 03/29/20 07:00 04/01/20 06:13 Januvia - PO 50 mg DAILY@0700 [facility] Administration Review of Systems Constitutional: denies: Chills or Fever Cardiovascular: As noted above Respiratory: denies: Cough or Sputum Production Gastrointestinal: denies: Nausea, Vomiting, Diarrhea, Constipation or Abdominal Pain Genitourinary: No symptoms reported - Objective Vital Signs: Last Vital Signs Temp Pulse Resp BP Pulse Ox 98.1 F 60 20 148/60 97 04/01/20 02:00 04/01/20 02:00 04/01/20 02:00 04/01/20 02:00 04/01/20 02:00 Intake & Output 03/29/20 03/30/20 03/31/20 04/01/20 23:59 23:59 23:59 23:59 Intake Total 780 520 Balance 780 520 Weight 211 lb Neck: Supple negative JVD no bruit Cardiovascular: S1 S2 Regularly Rate Rhythm Grade 2/6 AURELIO Respiratory: Diminished Breath Sounds Bilaterally Gastrointestinal: Soft Benign Normal Bowel Sounds Ext: Negative Edema Labs: CBC, BMP 04/01/20 06:09 04/01/20 06:09 CBC, BMP 03/31/20 06:48 03/31/20 06:48 Hepatic Panel Total Bilirubin 0.3 mg/dL (0.2-1) 03/31/20 06:48 AST 11 U/L (15-37) L 03/31/20 06:48 ALT 12 U/L (13-61) L 03/31/20 06:48 Alkaline Phosphatase 73 U/L (45-117) 03/31/20 06:48 Albumin 3.3 g/dl (3.4-5.0) L 03/31/20 06:48 INR, PTT INR 0.95 (0.83-1.09) 03/28/20 10:35 Assessment/Plan ASSESSMENT: 1. Chest pain syndrome in a patient with known history of coronary artery disease post coronary artery bypass grafting angina pectoris, no evidence of acute coronary syndrome 2. Diastolic/systolic left ventricular dysfunction with chronic class I-II [place] [employer] classification left ventricular failure, clinically compensated/euvolemic, history of acute exacerbation 3. Hypertensive cardiovascular disease 4. Diabetes mellitus 5. Hypercholesterolemia 6. 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 History of acute hypoxic respiratory failure related to coronavirus/COVID 19 pneumonitis, serology positive 8. Acute on chronic kidney disease PLAN: 1. Continue Bystolic therapy 2. Continue Cozaar therapy with close monitoring of renal function 3. Continue Hydralazine therapy 4. Continue Ranexa therapy, if recurrent chest discomfort recommend the addition of Imdur and/or Norvasc therapies/anti-anginal 5. Continue Crestor and Lovaza 6. Continue Plavix 7. 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
[2020-04-01 07:13] LABS: BASO % 0.8 % (0-2.0); EOS % 1.5 % (0-4.5); HEMATOCRIT 39.3 % (32.4-45.2); HEMOGLOBIN 12.7 GM/dL (10.7-15.3); LYMPH % 39.7 % (8-40); MCH 29.1 pg (25.7-33.7); MCHC 32.2 g/dl (32.0-36.0); MEAN CELL VOLUME 90.3 fl (80-96); MEAN PLT VOLUME 9.8 fl (7.5-11.1); MONO % 5.7 % (3.8-10.2); NEUT % 52.3 % (42.8-82.8); PLATELET COUNT 194 K/MM3 (134-434); RBC 4.36 M/mm3 (3.60-5.2); RDW 14.1 % (11.6-15.6); WHITE BLOOD COUNT 9.3 K/mm3 (4.0-10.0)
[2020-04-01 07:19] LABS: ALBUMIN 3.3 g/dl (3.4-5.0); BILIRUBIN,TOTAL 0.3 mg/dL (0.2-1); BLOOD UREA NITROGEN 48.7 mg/dL (7-18); CALCIUM 8.3 mg/dL (8.5-10.1); CREATININE 1.9 mg/dL (0.55-1.3); TOT PROT 6.3 g/dl (6.4-8.2)
--- NOTE | 2020-04-01 09:09 | DS ---
Physical Examination Vital Signs: Vital Signs Temperature 98.1 F 04/01/20 06:00 Pulse Rate 52 L 04/01/20 06:00 Respiratory Rate 20 04/01/20 08:51 Blood Pressure 148/66 04/01/20 06:00 O2 Sat by Pulse Oximetry (%) 97 04/01/20 08:51 Findings/Remarks: 89 yo F h/o and CAD s/p CABG congestive heart failure, diabetes, hypertension, RA HLD, COVID+ pneumonia (11/24-), who presents to the ED with chest heaviness and SOB since earlier this morning. Patient stated her symptoms began shortly after she had breakfast around 9 am . and described her chest heaviness as mild, constant, and that it is located in the center of chest with no association to movement or position. radiating to he arms. did get pale at the time per her daughter and had associated sob. no h/o stents post her cabg. Patient denies: fever, chills, nausea, vomiting, cough, abdominal pain, or any other related symptoms. (1) CKD (chronic kidney disease) Assessment/Plan: -Cr at baseline -monitor trend Problems reviewed: Yes Code(s): N18.9 - CHRONIC KIDNEY DISEASE, UNSPECIFIED (2) Chest pain Assessment/Plan: -Tele monitor -Cardiology consult -EKG no changes -Serial Trops negative -Last Echo 05/03- Normal LVEF at 65%, mild tricuspid, mitral and aortic regurg, mild mitral annular calcification, mild aortic sclerosis. -Repeat echo- Normal LVEF at 60-65%, impaired LV relaxation, mild mitral and tricuspid regurg, mild aortic sclerosis Problems reviewed: Yes Code(s): R07.9 - CHEST PAIN, UNSPECIFIED (3) CAD (coronary artery disease) Assessment/Plan: -Continue Statin -Continue Plavix -Continue Bystolic Problems reviewed: Yes Code(s): I25.10 - ATHSCL HEART DISEASE OF [place] CORONARY ARTERY W/O ANG PCTRS (4) Hyperlipidemia Problems reviewed: Yes Code(s): E78.5 - HYPERLIPIDEMIA, UNSPECIFIED Qualifiers: Hyperlipidemia type: pure hypercholesterolemia Qualified Code(s): E78.00 - Pure hypercholesterolemia, unspecified; E78.0 - Pure hypercholesterolemia (5) Hypertension Assessment/Plan: -Add ARB if cardiology agrees- was on Losartan? discontinued? Problems reviewed: Yes Code(s): I10 - ESSENTIAL (PRIMARY) HYPERTENSION Qualifiers: Hypertension type: essential hypertension Qualified Code(s): I10 - Essential (primary) hypertension (6) Type 2 diabetes mellitus Assessment/Plan: -Last A1c at 6.8 in 11/2019 -Repeat A1c at 5.7 -D/C BGM AC HS -D/C ISS -continue Diabetic low sodium diet for dietary control -Also chronically on Prednisone -Ideally would recommend Jardiance-given cardiac risks-non formulary at [facility] -Continue Januvia 50 mg po daily for now Problems reviewed: Yes Code(s): E11.9 - TYPE 2 DIABETES MELLITUS WITHOUT COMPLICATIONS (7) Constipation Assessment/Plan: -Miralax po daily -Senna 2 tabs HS Problems reviewed: Yes Code(s): K59.00 - CONSTIPATION, UNSPECIFIED Assessment/Plan See problem list Constitutional: Yes: Well Nourished, No Distress, Calm, Obese Cardiovascular: Yes: Regular Rate and Rhythm Respiratory: Yes: Regular, CTA Bilaterally Gastrointestinal: Yes: Normal Bowel Sounds, Soft, Abdomen, Obese Renal/: Yes: WNL Musculoskeletal: Yes: Muscle Weakness Extremities: Yes: WNL Edema: No Peripheral Pulses WNL: Yes Neurological: Yes: Alert, Oriented Psychiatric: Yes: Alert, Oriented Labs: CBC, BMP 04/01/20 06:09 04/01/20 06:09 Discharge Summary Problems reviewed: Yes Reason For Visit: CHEST PAIN Current Active Problems Angina at rest (Acute) CKD (chronic kidney disease) (Acute) Chest pain (Acute) Constipation (Acute) NYHA class 2 and ACC/AHA 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 Formulary)] 1 tab PO DAILY 06/12/16 [place]-3 Acid Ethyl Esters [Lovaza -] 2,000 mg PO BID 06/12/16 Ranolazine [Ranexa] 500 mg PO BID 06/12/16 Acetaminophen 500 mg PO PRN 03/28/20 Allopurinol [Zyloprim -] 100 mg PO DAILY 03/28/20 Aspirin [Aspirin EC] 81 mg PO DAILY 03/28/20 Atorvastatin Calcium 20 mg PO DAILY 03/28/20 Gabapentin 300 mg PO HS 03/28/20 Mirabegron [Myrbetriq] 25 mg PO DAILY 03/28/20 Nebivolol [Bystolic -] 5 mg PO DAILY 03/28/20 Prescription Drug Monitoring Program (I-STOP) results: I-STOP reviewed and no issues identified
[2020-04-01] MEDS: NEBIVOLOL 5 MG TABLET (FP) PO SCH (09:40)
[2020-04-01] MEDS: predniSONE 5 MG TABLET (UD) PO SCH (09:40)
[2020-04-01] MEDS: ROSUVASTATIN CA 20 MG TABLET (FP) PO SCH (09:40)
[2020-04-01] MEDS: DULoxetine HCL 30 MG CAPSULE.DR PO SCH (09:40)
[2020-04-01] MEDS: RANOLAZINE E.R. 500 MG TABLET (FP) PO SCH (09:40)
[2020-04-01] MEDS: LOSARTAN POTASSIUM 50 MG TABLET (FP) PO SCH (09:40)
[2020-04-01] MEDS: OMEGA-3 ACID ETHYL ESTERS (FATTY-ACIDS) 1 GM CAPSULE (FP) PO SCH (09:40)
[2020-04-01] MEDS: CLOPIDOGREL BISULFATE 75 MG TABLET (FP) PO SCH (09:40)
[2020-04-01] MEDS: POLYETHYLENE GLYCOL 3350 119 GM BTL PO SCH (09:42)
[2020-04-01] MEDS: FEBUXOSTAT 40 MG TAB PO SCH (09:45)
[2020-04-01 09:53] VITALS: BP 163/63; PULSE 62
== END 2020-04-01 14:44 | disposition home health service (06) | DRG 292 ==
LOC: JER 09:51 → JERBED 11:31 → OBSVTOIN 16:14 → J4S 19:00 → J4W 03-31 18:18
PROVIDERS: ADMIT Family Medicine; ATTEND Family Medicine
DX: I13.0 Hypertensive heart and chronic kidney disease with heart failure and stage 1 through stage 4 chronic kidney disease, or unspecified chronic kidney disease (principal); I45.2 Bifascicular block; I50.42 Chronic combined systolic (congestive) and diastolic (congestive) heart failure; I25.10 Atherosclerotic heart disease of native coronary artery without angina pectoris; Z68.35 Body mass index [BMI] 35.0-35.9, adult; K21.9 Gastro-esophageal reflux disease without esophagitis; N18.9 Chronic kidney disease, unspecified; E78.5 Hyperlipidemia, unspecified; E11.22 Type 2 diabetes mellitus with diabetic chronic kidney disease; K59.00 Constipation, unspecified; Z95.5 Presence of coronary angioplasty implant and graft; R07.89 Other chest pain; E66.01 Morbid (severe) obesity due to excess calories
CPT/HCPCS: 36415; 71045-TC-FY; 80053; 82550; 82607; 82728; 82962; 83036; 83540; 83550; 83880; 84484; 85025; 85610; 93005; 93010; 93306-TC; 93970-TC; 97116-GP; 97161-GP; 99285-25; G0378; U0003

== ENCOUNTER 2020-09-17 10:25 | Inpatient (IN) | payer OTHER ==
[2020-09-17 10:35] VITALS: BMI 40.3
[2020-09-17] MEDS ORDERED: GLUCAGON 1 MG KIT ONE (10:52)
[2020-09-17 13:02] LABS: BASO % 0.9 % (0-2.0); EOS % 0.4 % (0-4.5); HEMATOCRIT 42.1 % (32.4-45.2); HEMOGLOBIN 13.6 GM/dL (10.7-15.3); LYMPH % 24.5 % (8-40); MCH 28.1 pg (25.7-33.7); MCHC 32.3 g/dl (32.0-36.0); MEAN CELL VOLUME 86.8 fl (80-96); MEAN PLT VOLUME 9.9 fl (7.5-11.1); MONO % 3.5 % (3.8-10.2); NEUT % 70.7 % (42.8-82.8); PLATELET COUNT 225 K/MM3 (134-434); RBC 4.85 M/mm3 (3.60-5.2); RDW 16.2 % (11.6-15.6)
[2020-09-17 13:10] LABS: INR 0.95 (0.83-1.09); PROTHROMBIN TIME (PATIENT) 11.7 SEC (9.7-13.0)
[2020-09-17 13:13] LABS: ACTIVATED PTT 33.3 SECONDS (25.2-36.5)
[2020-09-17 13:20] LABS: CHLORIDE 109 mmol/L (98-107); POTASSIUM 4.6 mmol/L (3.5-5.1); SODIUM 140 mmol/L (136-145)
[2020-09-17 13:22] LABS: ALBUMIN 3.8 g/dl (3.4-5.0); ANION GAP 8 MMOL/L (8-16); BLOOD UREA NITROGEN 77.8 mg/dL (7-18); CALCIUM 9.1 mg/dL (8.5-10.1); CO2 23 mmol/L (21-32); GLUCOSE,RANDOM 97 mg/dL (74-106)
[2020-09-17 13:24] LABS: SGPT/ALT 13 U/L (13-61)
[2020-09-17 13:25] LABS: CREATININE 3.5 mg/dL (0.55-1.3); SGOT/AST 13 U/L (15-37)
[2020-09-17 13:27] LABS: ALK PHOS 77 U/L (45-117); BILIRUBIN,TOTAL 0.2 mg/dL (0.2-1); TOT PROT 7.2 g/dl (6.4-8.2)
[2020-09-17 13:39] LABS: CHOLESTEROL 199 mg/dL (50-200); LDL CHOLESTEROL (ONLY SJRH) 123 mg/dL (5-100); TRIGLYCERIDES 142 mg/dL (0-150)
[2020-09-17 13:40] LABS: HDL CHOLESTEROL 48 mg/dL (40-60)
[2020-09-17] MEDS ORDERED: SODIUM CHLORIDE 500 ML IV STA (14:06)
[2020-09-17 14:23] LABS: EPI CELLS 8 /uL (0-25.1); HYALINE CASTS 1 /uL (0-3.1); URINE APPEARANCE CLEAR; URINE BACTERIA 40 /uL (0-1359); URINE BILIRUBIN NEGATIVE (NEGATIVE); URINE COLOR YELLOW; URINE GLUCOSE (UA) NEGATIVE (NEGATIVE); URINE KETONE NEGATIVE (NEGATIVE); URINE LEUK ESTERASE NEGATIVE (NEGATIVE); URINE NITRITE NEGATIVE (NEGATIVE); URINE PROTEIN 1+ (NEGATIVE); URINE RBC 5 /uL (0-23.9); URINE UROBILINOGEN 0.2 mg/dL (0.2-1.0); URINE WBC 14 /uL (0-25.8)
[2020-09-17] MEDS ORDERED: ASPIRIN 325 MG ENTERIC COATED TABLET (FP) PO ONE (14:29)
[2020-09-17] MEDS ORDERED: CLOPIDOGREL BISULFATE 75 MG TABLET (FP) PO ONE (14:29)
[2020-09-17] MEDS ORDERED: CLOPIDOGREL BISULFATE 75 MG TABLET (FP) ONE (14:38)
[2020-09-17] MEDS ORDERED: ASPIRIN COATED 81 MG TABLET.EC ONE (14:38)
[2020-09-17] MEDS ORDERED: MELATONIN 5 MG TABLETS PO PRN (19:03)
[2020-09-17] MEDS ORDERED: SENNOSIDES 8.6MG TABLET (FP) PO PRN (19:03)
[2020-09-17] MEDS ORDERED: DEXTROSE 50%-WATER 25 GM/50 ML DISP.SYRIN ONE (20:58)
[2020-09-17] MEDS ORDERED: DEXTROSE 50%-WATER - 25 GM/50 ML VIAL IVPUSH ONE (21:19)
[2020-09-17] MEDS ORDERED: hydrALAZINE HCL 25 MG TABLET (FP) ONE (22:57)
[2020-09-17] MEDS ORDERED: GABAPENTIN 100 MG CAPSULE ONE (22:57)
[2020-09-18] MEDS: OMEGA-3 ACID ETHYL ESTERS (FATTY-ACIDS) 1 GM CAPSULE (FP) PO SCH ×3 (00:06→23:10)
[2020-09-18] MEDS: hydrALAZINE HCL 25 MG TABLET (FP) PO SCH ×4 (00:06→23:15)
[2020-09-18] MEDS: GABAPENTIN 300 MG CAPSULE PO SCH ×2 (00:07→23:11)
[2020-09-18] MEDS: RANOLAZINE E.R. 500 MG TABLET (FP) PO SCH ×3 (00:07→23:11)
[2020-09-18] MEDS ORDERED: DEXTROSE 5%-WATER - 1,000 ML IV SCH (07:45)
[2020-09-18 07:51] LABS: BASO % 0.7 % (0-2.0); EOS % 1.8 % (0-4.5); HEMATOCRIT 42.1 % (32.4-45.2); LYMPH % 33.8 % (8-40); MCH 28.7 pg (25.7-33.7); MCHC 33.3 g/dl (32.0-36.0); MEAN CELL VOLUME 86.2 fl (80-96); MEAN PLT VOLUME 9.5 fl (7.5-11.1); MONO % 6.4 % (3.8-10.2); NEUT % 57.3 % (42.8-82.8); PLATELET COUNT 229 K/MM3 (134-434); RBC 4.89 M/mm3 (3.60-5.2); RDW 16.1 % (11.6-15.6); WHITE BLOOD COUNT 12.7 K/mm3 (4.0-10.0)
[2020-09-18 08:12] LABS: CHLORIDE 113 mmol/L (98-107); SODIUM 144 mmol/L (136-145)
[2020-09-18 08:24] LABS: CALCIUM 8.8 mg/dL (8.5-10.1)
[2020-09-18 08:25] LABS: ALBUMIN 3.6 g/dl (3.4-5.0); ANION GAP 9 MMOL/L (8-16); BLOOD UREA NITROGEN 74.3 mg/dL (7-18); CO2 22 mmol/L (21-32)
[2020-09-18 08:28] LABS: CREATININE 3.3 mg/dL (0.55-1.3); SGOT/AST 10 U/L (15-37); SGPT/ALT 12 U/L (13-61)
[2020-09-18 08:29] LABS: BILIRUBIN,TOTAL 0.6 mg/dL (0.2-1)
[2020-09-18 08:30] LABS: ALK PHOS 75 U/L (45-117)
[2020-09-18 08:52] LABS: GLUCOSE,RANDOM 48 mg/dL (74-106)
[2020-09-18] MEDS ORDERED: PATIENT'S OWN MEDICATION (NON-FORMULARY) (Linaclotide [Linzess] 145 MCG Capsule) PO SCH (10:00)
[2020-09-18] MEDS ORDERED: ASPIRIN COATED 81 MG TABLET.EC ONE (10:03)
[2020-09-18] MEDS ORDERED: hydrALAZINE HCL 25 MG TABLET (FP) ONE ×2 (10:03→14:33)
[2020-09-18] MEDS ORDERED: CLOPIDOGREL BISULFATE 75 MG TABLET (FP) ONE (10:04)
[2020-09-18] MEDS ORDERED: DULoxetine HCL 30 MG CAPSULE.DR PO ONE (10:04)
[2020-09-18] MEDS ORDERED: LOSARTAN POTASSIUM 50 MG TABLET ONE (10:04)
[2020-09-18] MEDS: ASPIRIN COATED 81 MG TABLET.EC PO SCH (10:29)
[2020-09-18] MEDS: NEBIVOLOL 5 MG TABLET (FP) PO SCH (10:29)
[2020-09-18] MEDS: LOSARTAN POTASSIUM 50 MG TABLET PO SCH (10:29)
[2020-09-18] MEDS: DULoxetine HCL 30 MG CAPSULE.DR PO SCH (10:29)
[2020-09-18] MEDS: POLYETHYLENE GLYCOL 3350 119 GM BTL PO SCH (10:29)
[2020-09-18] MEDS: CLOPIDOGREL BISULFATE 75 MG TABLET (FP) PO SCH (10:29)
[2020-09-18] MEDS: INSULIN SLIDING SCALE (NOVOLOG) 1 VIAL SQ SCH ×3 (11:09→22:04)
[2020-09-18] MEDS ORDERED: DEXTROSE 5%-0.45% SALINE 1,000 ML IV SCH (13:15)
[2020-09-18] MEDS: DEXTROSE 5%-0.45% SALINE 1,000 ML IV SCH (15:15)
[2020-09-18] MEDS: ATORVASTATIN CA 20 MG TABLET (FP) PO SCH (23:11)
[2020-09-18] MEDS: ACETAMINOPHEN 500 MG TABLET (FP) PO PRN (23:11)
[2020-09-19] MEDS: INSULIN SLIDING SCALE (NOVOLOG) 1 VIAL SQ SCH ×4 (07:52→22:40)
[2020-09-19 08:51] LABS: POTASSIUM 4.8 mmol/L (3.5-5.1)
[2020-09-19 08:54] LABS: ALBUMIN 3.2 g/dl (3.4-5.0); BLOOD UREA NITROGEN 73.8 mg/dL (7-18); CALCIUM 8.6 mg/dL (8.5-10.1)
[2020-09-19 08:57] LABS: CREATININE 3.5 mg/dL (0.55-1.3)
[2020-09-19 08:59] LABS: BILIRUBIN,TOTAL 0.4 mg/dL (0.2-1); TOT PROT 6.1 g/dl (6.4-8.2)
[2020-09-19] MEDS: NEBIVOLOL 5 MG TABLET (FP) PO SCH (09:27)
[2020-09-19 10:11] LABS: BASO % 0.5 % (0-2.0); EOS % 1.7 % (0-4.5); HEMATOCRIT 41.2 % (32.4-45.2); HEMOGLOBIN 13.3 GM/dL (10.7-15.3); LYMPH % 45.7 % (8-40); MCH 28.2 pg (25.7-33.7); MCHC 32.4 g/dl (32.0-36.0); MEAN CELL VOLUME 87.1 fl (80-96); MEAN PLT VOLUME 9.7 fl (7.5-11.1); MONO % 4.8 % (3.8-10.2); NEUT % 47.3 % (42.8-82.8); PLATELET COUNT 212 K/MM3 (134-434); RBC 4.73 M/mm3 (3.60-5.2); RDW 16.6 % (11.6-15.6); WHITE BLOOD COUNT 12.3 K/mm3 (4.0-10.0)
[2020-09-19] MEDS: LOSARTAN POTASSIUM 50 MG TABLET PO SCH (11:11)
[2020-09-19] MEDS: CLOPIDOGREL BISULFATE 75 MG TABLET (FP) PO SCH (11:11)
[2020-09-19] MEDS: ASPIRIN COATED 81 MG TABLET.EC PO SCH (11:12)
[2020-09-19] MEDS: OMEGA-3 ACID ETHYL ESTERS (FATTY-ACIDS) 1 GM CAPSULE (FP) PO SCH ×2 (11:12→22:34)
[2020-09-19] MEDS: RANOLAZINE E.R. 500 MG TABLET (FP) PO SCH ×2 (11:12→22:35)
[2020-09-19] MEDS: ACETAMINOPHEN 500 MG TABLET (FP) PO PRN (11:23)
[2020-09-19] MEDS: DULoxetine HCL 30 MG CAPSULE.DR PO SCH (13:50)
[2020-09-19] MEDS: POLYETHYLENE GLYCOL 3350 119 GM BTL PO SCH (13:50)
[2020-09-19] MEDS: hydrALAZINE HCL 25 MG TABLET (FP) PO SCH ×2 (13:51→22:33)
[2020-09-19] MEDS: DEXTROSE 5%-0.45% SALINE 1,000 ML IV SCH (17:51)
[2020-09-19] MEDS: ATORVASTATIN CA 20 MG TABLET (FP) PO SCH (22:33)
[2020-09-19] MEDS: GABAPENTIN 300 MG CAPSULE PO SCH (22:33)
[2020-09-20] MEDS: INSULIN SLIDING SCALE (NOVOLOG) 1 VIAL SQ SCH ×4 (06:14→22:11)
[2020-09-20] MEDS: hydrALAZINE HCL 25 MG TABLET (FP) PO SCH ×3 (06:34→22:11)
[2020-09-20 08:46] LABS: ALBUMIN 3.4 g/dl (3.4-5.0); BLOOD UREA NITROGEN 80.2 mg/dL (7-18); CALCIUM 8.3 mg/dL (8.5-10.1)
[2020-09-20 08:49] LABS: CREATININE 3.6 mg/dL (0.55-1.3)
[2020-09-20 08:51] LABS: BILIRUBIN,TOTAL 0.4 mg/dL (0.2-1); TOT PROT 6.5 g/dl (6.4-8.2)
[2020-09-20] MEDS: NEBIVOLOL 5 MG TABLET (FP) PO SCH (09:35)
[2020-09-20] MEDS: ACETAMINOPHEN 500 MG TABLET (FP) PO PRN (10:33)
[2020-09-20] MEDS: CLOPIDOGREL BISULFATE 75 MG TABLET (FP) PO SCH (10:34)
[2020-09-20] MEDS: DULoxetine HCL 30 MG CAPSULE.DR PO SCH (10:34)
[2020-09-20] MEDS: ASPIRIN COATED 81 MG TABLET.EC PO SCH (10:34)
[2020-09-20] MEDS: OMEGA-3 ACID ETHYL ESTERS (FATTY-ACIDS) 1 GM CAPSULE (FP) PO SCH ×2 (10:34→22:11)
[2020-09-20] MEDS: LOSARTAN POTASSIUM 50 MG TABLET PO SCH (10:35)
[2020-09-20] MEDS: POLYETHYLENE GLYCOL 3350 119 GM BTL PO SCH (10:35)
[2020-09-20] MEDS: RANOLAZINE E.R. 500 MG TABLET (FP) PO SCH ×2 (10:35→22:11)
[2020-09-20] MEDS: DEXTROSE 5%-0.45% SALINE 1,000 ML IV SCH (11:44)
[2020-09-20] MEDS: GABAPENTIN 300 MG CAPSULE PO SCH (22:11)
[2020-09-20] MEDS: ATORVASTATIN CA 20 MG TABLET (FP) PO SCH (22:11)
[2020-09-21] MEDS: hydrALAZINE HCL 25 MG TABLET (FP) PO SCH ×4 (06:53→21:25)
[2020-09-21] MEDS: INSULIN SLIDING SCALE (NOVOLOG) 1 VIAL SQ SCH ×4 (06:53→22:10)
[2020-09-21 08:21] LABS: HEMATOCRIT 38.9 % (32.4-45.2); HEMOGLOBIN 12.7 GM/dL (10.7-15.3); MCH 28.4 pg (25.7-33.7); MCHC 32.6 g/dl (32.0-36.0); MEAN CELL VOLUME 87.3 fl (80-96); MEAN PLT VOLUME 10.1 fl (7.5-11.1); PLATELET COUNT 209 K/MM3 (134-434); RBC 4.46 M/mm3 (3.60-5.2); RDW 16.3 % (11.6-15.6); WHITE BLOOD COUNT 10.3 K/mm3 (4.0-10.0)
[2020-09-21 08:24] LABS: ALBUMIN 3.4 g/dl (3.4-5.0); CALCIUM 8.6 mg/dL (8.5-10.1)
[2020-09-21 08:25] LABS: MAGNESIUM 2.7 mg/dL (1.8-2.4)
[2020-09-21 08:28] LABS: CREATININE 3.6 mg/dL (0.55-1.3)
[2020-09-21 08:30] LABS: BILIRUBIN,TOTAL 0.4 mg/dL (0.2-1); TOT PROT 6.3 g/dl (6.4-8.2)
[2020-09-21] MEDS: NEBIVOLOL 5 MG TABLET (FP) PO SCH (11:16)
[2020-09-21] MEDS: DULoxetine HCL 30 MG CAPSULE.DR PO SCH (11:17)
[2020-09-21] MEDS: OMEGA-3 ACID ETHYL ESTERS (FATTY-ACIDS) 1 GM CAPSULE (FP) PO SCH ×2 (11:17→21:26)
[2020-09-21] MEDS: CLOPIDOGREL BISULFATE 75 MG TABLET (FP) PO SCH (11:17)
[2020-09-21] MEDS: LOSARTAN POTASSIUM 50 MG TABLET PO SCH (11:17)
[2020-09-21] MEDS: RANOLAZINE E.R. 500 MG TABLET (FP) PO SCH ×2 (11:17→21:26)
[2020-09-21] MEDS: POLYETHYLENE GLYCOL 3350 119 GM BTL PO SCH (11:17)
[2020-09-21] MEDS: ASPIRIN COATED 81 MG TABLET.EC PO SCH (11:17)
[2020-09-21] MEDS: DEXTROSE 5%-0.45% SALINE 1,000 ML IV SCH ×2 (11:18→13:22)
[2020-09-21] MEDS: ATORVASTATIN CA 20 MG TABLET (FP) PO SCH (21:26)
[2020-09-21] MEDS: GABAPENTIN 300 MG CAPSULE PO SCH (21:26)
[2020-09-21] MEDS: ACETAMINOPHEN 500 MG TABLET (FP) PO PRN (21:27)
[2020-09-22] MEDS: INSULIN SLIDING SCALE (NOVOLOG) 1 VIAL SQ SCH (06:34)
[2020-09-22] MEDS: hydrALAZINE HCL 25 MG TABLET (FP) PO SCH ×3 (06:35→21:47)
[2020-09-22 08:46] LABS: POTASSIUM 5.3 mmol/L (3.5-5.1)
[2020-09-22 08:52] LABS: CALCIUM 8.5 mg/dL (8.5-10.1)
[2020-09-22 08:53] LABS: BLOOD UREA NITROGEN 70.8 mg/dL (7-18); MAGNESIUM 2.8 mg/dL (1.8-2.4)
[2020-09-22 08:56] LABS: CREATININE 3.4 mg/dL (0.55-1.3)
[2020-09-22] MEDS ORDERED: ACETAMINOPHEN 500 MG TABLET (FP) PO PRN (09:26)
[2020-09-22] MEDS: DEXTROSE 5%-0.45% SALINE 1,000 ML IV SCH (10:30)
[2020-09-22] MEDS: POLYETHYLENE GLYCOL 3350 119 GM BTL PO SCH (11:38)
[2020-09-22] MEDS: NEBIVOLOL 5 MG TABLET (FP) PO SCH (11:38)
[2020-09-22] MEDS: OMEGA-3 ACID ETHYL ESTERS (FATTY-ACIDS) 1 GM CAPSULE (FP) PO SCH ×2 (11:38→21:47)
[2020-09-22] MEDS: ASPIRIN COATED 81 MG TABLET.EC PO SCH (11:38)
[2020-09-22] MEDS: RANOLAZINE E.R. 500 MG TABLET (FP) PO SCH ×2 (11:39→21:47)
[2020-09-22] MEDS: CLOPIDOGREL BISULFATE 75 MG TABLET (FP) PO SCH (11:39)
[2020-09-22] MEDS: ESCITALOPRAM OXALATE 10 MG TABLET PO SCH (11:51)
[2020-09-22] MEDS ORDERED: SODIUM CHLORIDE 0.45% 1,000 ML IV SCH (15:15)
[2020-09-22] MEDS ORDERED: SODIUM ZIRCONIUM CYCLOSILICATE (LOKELMA) 5 GM PACKET PO ONE (15:15)
[2020-09-22] MEDS: DULoxetine HCL 30 MG CAPSULE.DR PO SCH (17:40)
[2020-09-22] MEDS: ATORVASTATIN CA 20 MG TABLET (FP) PO SCH (21:47)
[2020-09-23] MEDS: hydrALAZINE HCL 25 MG TABLET (FP) PO SCH ×2 (06:46→13:52)
[2020-09-23 09:52] LABS: CREATININE 3.3 mg/dL (0.55-1.3)
[2020-09-23] MEDS ORDERED: PT OWN MED DRAWER 7, Y5N ONE ×2 (10:37→13:26)
[2020-09-23] MEDS: OMEGA-3 ACID ETHYL ESTERS (FATTY-ACIDS) 1 GM CAPSULE (FP) PO SCH (10:45)
[2020-09-23] MEDS: NEBIVOLOL 5 MG TABLET (FP) PO SCH (10:46)
[2020-09-23] MEDS: POLYETHYLENE GLYCOL 3350 119 GM BTL PO SCH (10:46)
[2020-09-23] MEDS: ASPIRIN COATED 81 MG TABLET.EC PO SCH (10:46)
[2020-09-23] MEDS: CLOPIDOGREL BISULFATE 75 MG TABLET (FP) PO SCH (10:46)
[2020-09-23] MEDS: ESCITALOPRAM OXALATE 10 MG TABLET PO SCH (10:46)
[2020-09-23] MEDS: DULoxetine HCL 30 MG CAPSULE.DR PO SCH (10:46)
[2020-09-23] MEDS: RANOLAZINE E.R. 500 MG TABLET (FP) PO SCH (10:46)
[2020-09-23 10:51] VITALS: BP 130/54; PULSE 60; TEMP 98.1
[2020-09-23 12:51] LABS: BLOOD UREA NITROGEN 69.1 mg/dL (7-18); CALCIUM 8.3 mg/dL (8.5-10.1); POTASSIUM 5.1 mmol/L (3.5-5.1)
== END 2020-09-23 14:45 | disposition home health service (06) | DRG 637 ==
LOC: JER 10:25 → JERBED 14:46 → J6WEST-2 09-18 21:11 → JICU-6 09-20 19:55 → J4W 09-20 22:15
PROVIDERS: ADMIT Family Medicine; ATTEND Family Medicine
DX: E11.649 Type 2 diabetes mellitus with hypoglycemia without coma (principal); G93.41 Metabolic encephalopathy; I13.0 Hypertensive heart and chronic kidney disease with heart failure and stage 1 through stage 4 chronic kidney disease, or unspecified chronic kidney disease; I50.32 Chronic diastolic (congestive) heart failure; N17.9 Acute kidney failure, unspecified; G45.9 Transient cerebral ischemic attack, unspecified; I25.10 Atherosclerotic heart disease of native coronary artery without angina pectoris; E11.22 Type 2 diabetes mellitus with diabetic chronic kidney disease; I12.9 Hypertensive chronic kidney disease with stage 1 through stage 4 chronic kidney disease, or unspecified chronic kidney disease; N18.9 Chronic kidney disease, unspecified; E78.5 Hyperlipidemia, unspecified; Z95.1 Presence of aortocoronary bypass graft; Z79.84 Long term (current) use of oral hypoglycemic drugs; M10.9 Gout, unspecified; Z85.3 Personal history of malignant neoplasm of breast; K21.9 Gastro-esophageal reflux disease without esophagitis; E87.5 Hyperkalemia
CPT/HCPCS: 36415; 70450-TC; 70551-TC; 71045-TC-FY; 72148-TC; 76775-TC; 76856-TC; 80048; 80053; 80061; 81003; 82436; 82550; 82565; 82962; 83036; 83721; 83735; 84133; 84300; 84443; 84484; 85025; 85027; 85610; 85730; 86850; 86900; 86901; 87086; 93005; 93010; 93971-TC; 97116-GP; 97161-GP; 99285-25; C9803; U0003